=== PATIENT | female | born 1930 | race Caucasian/White ===

== ENCOUNTER 2017-06-04 12:09 | Emergency (ER) | payer MEDICARE, OTHER ==
--- NOTE | 2017-06-04 12:41 | EDM.PDOC ---
ED HPI GENERAL MEDICAL PROBLEM - General Chief Complaint: Headache Stated Complaint: PAIN IN HEAD...HAS HAD 2 TIA'S Time Seen by Provider: 06/04/17 12:30 Source of Information: Reports: Patient, RN, RN Notes Reviewed History Limitations: Reports: No Limitations - History of Present Illness INITIAL COMMENTS - FREE TEXT/NARRATIVE: Patient presents to the ED at [facility] complaining of left side head pain. Patient states she has a cyst on the top of the left side of her head that has been their for several several years. She states every couple years, the cyst gets painful and the pain radiates down the left side of her head. She states she is concerned today because she has had 2 TIA's in the past. The head pain today does not feel like her symptoms when she had TIA's. No other concerns or complaints. Onset: Gradual Location: Reports: Head Quality: Reports: Dull Severity: Mild Improves with: Reports: None Worsens with: Reports: None Associated Symptoms: Reports: No Other Symptoms - Related Data Allergies Allergy/AdvReac Type Severity Reaction Status Date / Time aspirin [From Aggrenox] Allergy Nausea and Verified 06/04/17 12:32 Vomiting codeine Allergy Nausea Verified 06/04/17 12:32 dipyridamole [From Aggrenox] Allergy Nausea and Verified 06/04/17 12:32 Vomiting etodolac [From Lodine] Allergy Nausea Verified 06/04/17 12:32 homatropine [From Hycodan] Allergy Nausea Verified 06/04/17 12:32 homatropine methylbromide Allergy Nausea Verified 06/04/17 12:32 [From Hycodan] hydrocodone bitartrate Allergy Nausea Verified 06/04/17 12:32 [From Hycodan] tramadol HCl [From Ultram] Allergy Nausea Verified 06/04/17 12:32 Home Meds: Home Meds Ascorbic Acid [Vitamin C] 1,000 mg PO 11/15/13 [History] Aspirin 81 mg PO 11/15/13 [History] Cyanocobalamin (Vitamin B12) [Vitamin B12] 1,000 mcg .XX 11/15/13 [History] Metoprolol Succinate [Toprol XL] 50 mg PO DAILY 11/15/13 [History] Potassium Chloride 10 meq PO BID 11/15/13 [History] Ranitidine [Zantac] 150 mg PO BID 11/15/13 [History] chlordiazePOXIDE [Librium] 10 mg PO BID PRN 11/15/13 [History] Potassium Chloride [Klor-Con 10] 10 meq PO TID #90 tab.er 11/16/13 [Rx] Past Medical History Cardiovascular History: Reports: Hypertension Gastrointestinal History: Reports: Diverticulosis Musculoskeletal History: Reports: Arthritis Neurological History: Reports: TIA Social & Family History - Tobacco Use Smoking Status *Q: Never Smoker Years of Tobacco use: 10 - Recreational Drug Use Recreational Drug Use: No ED ROS GENERAL - Review of Systems Review Of Systems: See Below Constitutional: Denies: Fever, Chills, Weakness HEENT: Reports: No Symptoms Respiratory: Denies: Shortness of Breath, Cough Cardiovascular: Denies: Chest Pain, Palpitations Skin: Reports: No Symptoms Neurological: Reports: Headache. Denies: Confusion, Dizziness, Numbness, Paresthesia, Syncope, Tingling, Trouble Speaking, Weakness - Physical Exam Exam: See Below Exam Limited By: No Limitations General Appearance: Alert, No Apparent Distress Eye Exam: Bilateral Eye: EOMI, Normal Inspection, PERRL Ears: Normal External Exam, Normal Canal, Normal TMs Neck: Supple Respiratory/Chest: No Respiratory Distress, Lungs Clear, Normal Breath Sounds Cardiovascular: Regular Rate, Rhythm Neuro Exam (Abbreviated): Alert, Oriented, Normal Cognition Skin Exam: Warm, Dry, Intact, Normal Color, No Rash Course - Vital Signs Last Recorded V/S: Last Vital Signs Temp 35.8 C 06/04/17 12:15 Pulse 59 L 06/04/17 13:10 Resp 14 06/04/17 13:10 BP 180/69 H 06/04/17 13:10 Pulse Ox 98 06/04/17 13:10 - Orders/Labs/Meds Orders: Active Orders 24 hr Category Date Time Status Head wo Cont [CT] Stat Exams 06/04/17 12:41 Taken - Radiology Interpretation Free Text/Narrative:: Head CT: No acute intracranial findings - See scanned document in EMR CT Results Date: 06/04/17 CT Results Time: 13:59 Departure - Departure Time of Disposition: 14:20 Disposition: Home, Self-Care 01 Condition: Good Clinical Impression: Inclusion cyst Head pain Qualifiers: Headache type: unspecified Headache chronicity pattern: unspecified pattern Intractability: not intractable Qualified Code(s): R51 - Headache - Discharge Information Referrals: Dona Araujo MD [Primary Care Provider] - Forms: ED Department Discharge Additional Instructions: 1. Stay well hydrated and rest 2. If the skin cyst becomes more bothersome, see you primary for possible removal in clinic 3. Call with any questions/concerns 4. CT scan of Head was normal - Problem List Review Problem List Initiated/Reviewed/Updated: Yes - My Orders Last 24 Hours: My Active Orders 06/04/17 12:41 Head wo Cont [CT] Stat - Assessment/Plan Last 24 Hours: My Active Orders 06/04/17 12:41 Head wo Cont [CT] Stat
== END 2017-06-04 14:37 | disposition home or self-care (01) ==
LOC: VM.ED 12:09
DX: R51 Headache (principal); L72.0 Epidermal cyst; I10 Essential (primary) hypertension; M19.90 Unspecified osteoarthritis, unspecified site; Z79.82 Long term (current) use of aspirin; Z88.5 Allergy status to narcotic agent; Z88.8 Allergy status to other drugs, medicaments and biological substances; Z79.899 Other long term (current) drug therapy
CPT/HCPCS: 70450; 99284; 99284-GF

== ENCOUNTER 2018-02-06 20:39 | Emergency (ER) | payer MEDICARE, OTHER ==
[2018-02-06] MEDS ORDERED: Sodium Chloride 0.9% 10 ML Syringe FLUSH PRN (21:11)
[2018-02-06 22:02] LABS: CHLORIDE,CL 104 mmol/L (98-107); SODIUM,NA 142 mmol/L (136-145)
--- NOTE | 2018-02-06 22:41 | EDM.PDOC ---
ED HPI GENERAL MEDICAL PROBLEM - General Chief Complaint: General Stated Complaint: worried about potassium Time Seen by Provider: 02/06/18 20:47 Source of Information: Reports: Patient History Limitations: Reports: No Limitations - History of Present Illness INITIAL COMMENTS - FREE TEXT/NARRATIVE: Pt. presents with a history of N/V/D for 1 days. She denies any fever or chills. She states that she is not experiencing any abdominal pain. No chest pain or shortness of breath. Pt. has a history of diverticulitis and states that she is prone to hypokalemia when she is experiencing vomiting and diarrhea. She denies any fever or chills. No weakness. She denies any dysuria. Onset: Today Onset Date: 02/06/18 Location: Reports: Abdomen Quality: Reports: Ache Middle Abdomen Pain Score (Numeric/FACES): 3 - Related Data Allergies Allergy/AdvReac Type Severity Reaction Status Date / Time aspirin [From Aggrenox] Allergy Nausea and Verified 02/06/18 20:50 Vomiting codeine Allergy Nausea Verified 02/06/18 20:50 dipyridamole [From Aggrenox] Allergy Nausea and Verified 02/06/18 20:50 Vomiting etodolac [From Lodine] Allergy Nausea Verified 02/06/18 20:50 homatropine [From Hycodan] Allergy Nausea Verified 02/06/18 20:50 homatropine methylbromide Allergy Nausea Verified 02/06/18 20:50 [From Hycodan] hydrocodone bitartrate Allergy Nausea Verified 02/06/18 20:50 [From Hycodan] tramadol HCl [From Ultram] Allergy Nausea Verified 02/06/18 20:50 Home Meds: Home Meds Ascorbic Acid [Vitamin C] 1,000 mg PO DAILY 11/15/13 [History] Aspirin 81 mg PO DAILY 11/15/13 [History] Cyanocobalamin (Vitamin B12) [Vitamin B12] 1,000 mcg PO DAILY 11/15/13 [History] Metoprolol Succinate [Toprol XL] 50 mg PO DAILY 11/15/13 [History] chlordiazePOXIDE [Librium] 10 mg PO BID PRN 11/15/13 [History] L.acidoph,Paracasei, B.lactis [Probiotic] 1 each PO DAILY 02/06/18 [History] Occuvite 1 tab PO DAILY 02/06/18 [History] Past Medical History Cardiovascular History: Reports: Hypertension Gastrointestinal History: Reports: Diverticulosis Musculoskeletal History: Reports: Arthritis Neurological History: Reports: TIA - Past Surgical History HEENT Surgical History: Reports: Cataract Surgery Social & Family History - Tobacco Use Smoking Status *Q: Former Smoker Years of Tobacco use: 10 Used Tobacco, but Quit: Yes Month Tobacco Last Used: 120 - Recreational Drug Use Recreational Drug Use: No ED ROS GENERAL - Review of Systems Review Of Systems: See Below Constitutional: Reports: No Symptoms HEENT: Reports: No Symptoms Respiratory: Reports: No Symptoms Cardiovascular: Reports: No Symptoms Endocrine: Reports: No Symptoms GI/Abdominal: Reports: Diarrhea, Nausea, Vomiting : Reports: No Symptoms Musculoskeletal: Reports: No Symptoms Skin: Reports: No Symptoms Neurological: Reports: No Symptoms Psychiatric: Reports: No Symptoms Hematologic/Lymphatic: Reports: No Symptoms Immunologic: Reports: No Symptoms ED EXAM, GENERAL - Physical Exam Exam: See Below Exam Limited By: No Limitations General Appearance: Alert, WD/WN, No Apparent Distress Throat/Mouth: Normal Inspection, Normal Lips, Normal Teeth, Normal Gums, Normal Oropharynx, Normal Voice, No Airway Compromise Head: Atraumatic, Normocephalic Neck: Normal Inspection, Supple, Non-Tender, Full Range of Motion Respiratory/Chest: No Respiratory Distress, Lungs Clear, Normal Breath Sounds, No Accessory Muscle Use, Chest Non-Tender Cardiovascular: Normal Peripheral Pulses, Regular Rate, Rhythm, No Edema, No Gallop, No JVD, No Murmur, No Rub Peripheral Pulses: 3+: Radial (L), Radial (R) GI/Abdominal: Normal Bowel Sounds, Soft, Non-Tender, No Organomegaly, No Distention, No Abnormal Bruit, No Mass (Female) Exam: Deferred Rectal (Female) Exam: Deferred Back Exam: Normal Inspection, Full Range of Motion Extremities: Normal Inspection, Normal Range of Motion, Non-Tender Neurological: Alert, Oriented, CN II-XII Intact, Normal Cognition, Normal Gait, Normal Reflexes, No Motor/Sensory Deficits Psychiatric: Normal Affect, Normal Mood Skin Exam: Warm, Dry, Intact, Normal Color, No Rash Lymphatic: No Adenopathy Course - Vital Signs Last Recorded V/S: Last Vital Signs Temp 35.9 C 02/06/18 20:47 Pulse 83 02/06/18 22:18 Resp 18 02/06/18 22:18 BP 136/78 02/06/18 22:18 Pulse Ox 96 02/06/18 22:18 - Orders/Labs/Meds Labs: Laboratory Tests 02/06/18 02/06/18 02/06/18 Range/Units 21:20 21:35 21:35 WBC 10.9 H (4.0-10.0) x10^3/uL RBC 4.66 (4.00-5.50) x10^6/uL Hgb 15.5 D (12.0-16.0) g/dL Hct 46.2 (33.0-47.0) % MCV 99.1 H (78.0-93.0) fL MCH 33.3 H (26.0-32.0) pg MCHC 33.5 (32.0-36.0) g/dL RDW Coeff of Jeffry 12.8 (10.0-15.0) % Plt Count 152 (130-400) x10^3/uL Neut % (Auto) 84.6 H (50.0-80.0) % Lymph % (Auto) 6.1 L (25.0-50.0) % [place] % (Auto) 7.8 (2.0-11.0) % Eos % (Auto) 1.4 (0.0-4.0) % Baso % (Auto) 0.1 L (0.2-1.2) % PT 11.0 (9.8-11.8) SEC INR 1.0 L (2.0-3.5) Sodium (136-145) mmol/L Potassium (3.5-5.1) mmol/L Chloride (98-107) mmol/L Carbon Dioxide (21-32) mmol/L BUN (7-18) mg/dL Creatinine (0.55-1.02) mg/dL Est Cr Clr Drug Dosing Estimated GFR (MDRD) Glucose (74-106) mg/dL Lactic Acid (0.4-2.0) mmol/L Calcium (8.5-10.1) mg/dL Corrected Calcium (8.5-10.1) mg/dL Total Bilirubin (0.2-1.0) mg/dL AST (15-37) U/L ALT (14-59) U/L Alkaline Phosphatase (46-116) U/L C-Reactive Protein (<=0.9) mg/dL Total Protein (6.4-8.2) g/dL Albumin (3.4-5.0) g/dL Globulin Albumin/Globulin Ratio Urine Color Yellow (YELLOW) Urine Appearance Slightly cloudy H (CLEAR) Urine pH 5.0 (5.0-8.0) Ur Specific [place] >=1.030 Urine Protein 30 H (NEGATIVE) mg/dL Urine Glucose (UA) Negative (NEGATIVE) mg/dL Urine Ketones 15 H (NEGATIVE) mg/dL Urine Occult Blood Negative (NEGATIVE) Urine Nitrite Negative (NEGATIVE) Urine Bilirubin Negative (NEGATIVE) Urine Urobilinogen 0.2 (0.2) EU/dL Ur Leukocyte Esterase Negative (NEGATIVE) Urine RBC 0-5 (NOT SEEN) /HPF Urine WBC 0-5 (NOT SEEN) /HPF Ur Squamous Epith Cells Few H (NEGATIVE) /HPF Calcium Oxalate Crystal Moderate H (NEGATIVE) /HPF Urine Bacteria Few H (NEGATIVE) /HPF Urine Mucus Few H (NEGATIVE) /LPF 02/06/18 02/06/18 Range/Units 21:35 21:35 WBC (4.0-10.0) x10^3/uL RBC (4.00-5.50) x10^6/uL Hgb (12.0-16.0) g/dL Hct (33.0-47.0) % MCV (78.0-93.0) fL MCH (26.0-32.0) pg MCHC (32.0-36.0) g/dL RDW Coeff of Jeffry (10.0-15.0) % Plt Count (130-400) x10^3/uL Neut % (Auto) (50.0-80.0) % Lymph % (Auto) (25.0-50.0) % [place] % (Auto) (2.0-11.0) % Eos % (Auto) (0.0-4.0) % Baso % (Auto) (0.2-1.2) % PT (9.8-11.8) SEC INR (2.0-3.5) Sodium 142 (136-145) mmol/L Potassium 3.7 (3.5-5.1) mmol/L Chloride 104 (98-107) mmol/L Carbon Dioxide 29 (21-32) mmol/L BUN 15 (7-18) mg/dL Creatinine 1.6 H (0.55-1.02) mg/dL Est Cr Clr Drug Dosing TNP Estimated GFR (MDRD) 31 Glucose 148 H (74-106) mg/dL Lactic Acid 1.1 (0.4-2.0) mmol/L Calcium 9.7 (8.5-10.1) mg/dL Corrected Calcium 9.78 (8.5-10.1) mg/dL Total Bilirubin 0.6 (0.2-1.0) mg/dL AST 28 (15-37) U/L ALT 23 (14-59) U/L Alkaline Phosphatase 79 (46-116) U/L C-Reactive Protein < 0.2 (<=0.9) mg/dL Total Protein 7.3 (6.4-8.2) g/dL Albumin 3.9 (3.4-5.0) g/dL Globulin 3.4 Albumin/Globulin Ratio 1.15 Urine Color (YELLOW) Urine Appearance (CLEAR) Urine pH (5.0-8.0) Ur Specific [place] Urine Protein (NEGATIVE) mg/dL Urine Glucose (UA) (NEGATIVE) mg/dL Urine Ketones (NEGATIVE) mg/dL Urine Occult Blood (NEGATIVE) Urine Nitrite (NEGATIVE) Urine Bilirubin (NEGATIVE) Urine Urobilinogen (0.2) EU/dL Ur Leukocyte Esterase (NEGATIVE) Urine RBC (NOT SEEN) /HPF Urine WBC (NOT SEEN) /HPF Ur Squamous Epith Cells (NEGATIVE) /HPF Calcium Oxalate Crystal (NEGATIVE) /HPF Urine Bacteria (NEGATIVE) /HPF Urine Mucus (NEGATIVE) /LPF Meds: Medications Discontinued Medications Generic Name Dose Route Start Last Admin Trade Name Freq PRN Reason Stop Dose Admin Sodium Chloride 10 ml 02/06/18 21:11 Saline Flush FLUSH ASDIRECTED PRN Keep Vein Open Departure - Departure Time of Disposition: 22:36 Disposition: Home, Self-Care 01 Condition: Good Clinical Impression: Gastroenteritis - Discharge Information Instructions: Viral Gastroenteritis, Adult Referrals: Gretel Cintron [employer] [Primary Care Provider] - Forms: ED Department Discharge Additional Instructions: Follow-up in clinic in 10-14 days, sooner if not gradually improving. Eat a bland diet. Drink plenty of fluids. Return if unable to hold down liquids.
== END 2018-02-06 22:34 | disposition home or self-care (01) ==
LOC: VM.ED 20:39
DX: K52.9 Noninfective gastroenteritis and colitis, unspecified (principal); I10 Essential (primary) hypertension; Z88.6 Allergy status to analgesic agent; Z87.891 Personal history of nicotine dependence; Z88.5 Allergy status to narcotic agent; Z88.8 Allergy status to other drugs, medicaments and biological substances; Z79.899 Other long term (current) drug therapy
CPT/HCPCS: 36415; 80053; 81001; 83605; 85025; 85610; 86140; 99283-GF; 99284

== ENCOUNTER 2018-02-07 18:29 | Emergency (ER) | payer MEDICARE, OTHER ==
[2018-02-07 19:21] LABS: CHLORIDE,CL 104 mmol/L (98-107); SODIUM,NA 142 mmol/L (136-145)
--- NOTE | 2018-02-07 19:31 | EDM.PDOC ---
<Chet Judd W - Last Filed: 02/07/18 19:31> ED HPI GENERAL MEDICAL PROBLEM - General Chief Complaint: Neuro Symptoms/Deficits Time Seen by Provider: 02/07/18 18:35 Source of Information: Reports: Patient History Limitations: Reports: No Limitations - History of Present Illness INITIAL COMMENTS - FREE TEXT/NARRATIVE: Pt. presents to ER with complaints of expressive aphasia that lasted approx. 8 minutes with sitting on her sofa at home. She states that she also had a R frontal headache as well during this time. Pt. states that she was alone at time of onset. She states that she was " talking to herself" and states that her language "was gibberish". She denies any recent head trauma. Denies any chest pain or shortness of breath. She states that, aside from the speech troubles and headache, she had no other neurological symptoms. She states that she has a history of previous TIAs, the last episode being a year ago. She states that at that time, her speech was garbled as well. Pt. states that all of her symptoms had resolved on arrival to the ER. - Related Data Allergies Allergy/AdvReac Type Severity Reaction Status Date / Time aspirin [From Aggrenox] AdvReac Nausea and Verified 02/07/18 18:43 Vomiting codeine AdvReac Nausea Verified 02/07/18 18:43 dipyridamole [From Aggrenox] AdvReac Nausea and Verified 02/07/18 18:43 Vomiting etodolac [From Lodine] AdvReac Nausea Verified 02/07/18 18:43 homatropine [From Hycodan] AdvReac Nausea Verified 02/07/18 18:43 homatropine methylbromide AdvReac Nausea Verified 02/07/18 18:43 [From Hycodan] hydrocodone bitartrate AdvReac Nausea Verified 02/07/18 18:43 [From Hycodan] tramadol HCl [From Ultram] AdvReac Nausea Verified 02/07/18 18:43 Home Meds: Home Meds Ascorbic Acid [Vitamin C] 1,000 mg PO DAILY 11/15/13 [History] Aspirin 81 mg PO DAILY 11/15/13 [History] Cyanocobalamin (Vitamin B12) [Vitamin B12] 1,000 mcg PO DAILY 11/15/13 [History] Metoprolol Succinate [Toprol XL] 50 mg PO DAILY 11/15/13 [History] chlordiazePOXIDE [Librium] 10 mg PO BID PRN 11/15/13 [History] L.acidoph,Paracasei, B.lactis [Probiotic] 1 each PO DAILY 02/06/18 [History] Occuvite 1 tab PO DAILY 02/06/18 [History] Past Medical History Cardiovascular History: Reports: Hypertension Gastrointestinal History: Reports: Diverticulosis Musculoskeletal History: Reports: Arthritis Neurological History: Reports: TIA - Past Surgical History HEENT Surgical History: Reports: Cataract Surgery Social & Family History - Tobacco Use Smoking Status *Q: Unknown Ever Smoked Years of Tobacco use: 10 Used Tobacco, but Quit: Yes Month Tobacco Last Used: 120 - Recreational Drug Use Recreational Drug Use: No ED ROS GENERAL - Review of Systems Review Of Systems: See Below Constitutional: Reports: No Symptoms HEENT: Reports: No Symptoms Respiratory: Reports: No Symptoms Cardiovascular: Reports: No Symptoms Endocrine: Reports: No Symptoms GI/Abdominal: Reports: Other (Seen in ER for gastroenteritis, including nausea, vomiting, and diarrhea last evening.) : Reports: No Symptoms Musculoskeletal: Reports: No Symptoms Skin: Reports: No Symptoms Neurological: Reports: Change in Speech (expressive aphasia today, lasting approx. 8 min. Symptoms resolved prior to arrival in the ER.) Psychiatric: Reports: No Symptoms Hematologic/Lymphatic: Reports: No Symptoms Immunologic: Reports: No Symptoms ED EXAM, GENERAL - Physical Exam Exam: See Below Exam Limited By: No Limitations General Appearance: Alert, WD/WN, No Apparent Distress Eye Exam: Bilateral Eye: EOMI, Normal Fundi, Normal Inspection, PERRL Nose: Normal Inspection, Normal Mucosa, No Blood Throat/Mouth: Normal Inspection, Normal Lips, Normal Teeth, Normal Gums, Normal Oropharynx, Normal Voice, No Airway Compromise Head: Atraumatic, Normocephalic Neck: Normal Inspection, Supple, Non-Tender, Full Range of Motion. No: Carotid Bruit Respiratory/Chest: No Respiratory Distress, Lungs Clear, Normal Breath Sounds, No Accessory Muscle Use, Chest Non-Tender Cardiovascular: Normal Peripheral Pulses, Regular Rate, Rhythm, No Edema, No Gallop, No JVD, No Murmur, No Rub Peripheral Pulses: 3+: Radial (L), Radial (R) GI/Abdominal: Normal Bowel Sounds, Soft, Non-Tender, No Organomegaly, No Distention, No Abnormal Bruit, No Mass (Female) Exam: Deferred Rectal (Female) Exam: Deferred Back Exam: Normal Inspection, Full Range of Motion, NT Extremities: Normal Inspection, Normal Range of Motion, Non-Tender, Normal Capillary Refill, No Pedal Edema Neurological: Alert, Oriented, CN II-XII Intact, Normal Cognition, Normal Gait, Normal Reflexes, No Motor/Sensory Deficits, Other (No pronator drift. 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 Facial muscles are symmetrical. Romberg is negative. NIH stroke scale is 0.). No: Abnormal Gait, Abnormal Reflexes, Sensory/Motor Deficit Course - Vital Signs Last Recorded V/S: Last Vital Signs Temp 36.2 C 02/07/18 18:30 Pulse 57 L 02/07/18 19:30 Resp 16 02/07/18 19:30 BP 169/75 H 02/07/18 19:30 Pulse Ox 96 02/07/18 18:30 - Orders/Labs/Meds Orders: Active Orders 24 hr Category Date Time Status EKG Documentation Completion [RC] STAT Care 02/07/18 18:41 Active Head wo Cont [CT] Stat Exams 02/07/18 18:41 Taken Labs: Laboratory Tests 02/07/18 02/07/18 02/07/18 Range/Units 18:52 18:52 18:52 WBC 5.7 (4.0-10.0) x10^3/uL RBC 4.27 (4.00-5.50) x10^6/uL Hgb 14.0 D (12.0-16.0) g/dL Hct 42.5 (33.0-47.0) % MCV 99.5 H (78.0-93.0) fL MCH 32.8 H (26.0-32.0) pg MCHC 32.9 (32.0-36.0) g/dL RDW Coeff of Jeffry 13.0 (10.0-15.0) % Plt Count 149 (130-400) x10^3/uL Neut % (Auto) 62.0 (50.0-80.0) % Lymph % (Auto) 24.6 L (25.0-50.0) % [place] % (Auto) 9.7 (2.0-11.0) % Eos % (Auto) 3.5 (0.0-4.0) % Baso % (Auto) 0.2 (0.2-1.2) % PT 11.5 (9.8-11.8) SEC INR 1.1 L (2.0-3.5) Sodium 142 (136-145) mmol/L Potassium 3.7 (3.5-5.1) mmol/L Chloride 104 (98-107) mmol/L Carbon Dioxide 30 (21-32) mmol/L BUN 17 (7-18) mg/dL Creatinine 1.6 H (0.55-1.02) mg/dL Est Cr Clr Drug Dosing 18.46 mL/min Estimated GFR (MDRD) 31 Glucose 136 H (74-106) mg/dL Calcium 9.3 (8.5-10.1) mg/dL Corrected Calcium 9.70 (8.5-10.1) mg/dL Total Bilirubin 0.8 (0.2-1.0) mg/dL AST 22 (15-37) U/L ALT 21 (14-59) U/L Alkaline Phosphatase 78 (46-116) U/L Troponin I < 0.017 (<=0.056) ng/mL Total Protein 6.7 (6.4-8.2) g/dL Albumin 3.5 (3.4-5.0) g/dL Globulin 3.2 Albumin/Globulin Ratio 1.09 Departure - Departure Disposition: DC/[facility]fer to [facility] 02 Clinical Impression: TIA, Transient ischemic attack - Discharge Information Referrals: Gretel Cintron, RN REVIEW [Primary Care Provider] - Forms: ED Department Discharge, Interfacility Transfer EMTALA <Uriah Alexander - Last Filed: 02/07/18 22:01> EKG INTERPRETATION EKG Date: 02/07/18 Time: 19:07 Rhythm: Other (sinus bradycardia) Rate (Beats/Min): 53 [place]: Normal P-Wave: Present QRS: Normal ST-T: Normal QT: Normal Comparison: Change From Previous EKG EKG Interpretation Comments: 1. sinus bradycardia 2. minimal voltage criteria for LVH, consider normal variant 3. Septal myocardial infarction of indeterminate age 4. Abnormal EKG Course - Radiology Interpretation Free Text/Narrative:: CT result negative for hemorrhage or ischemia. Departure - Departure Time of Disposition: 22:00 ED Communication - Discussed Case With (1) Discussed Case With (1): Other (Dr. Gibbons from neurology was consulted. Recommendation to present to the ER for further evaluation.)
== END 2018-02-07 22:09 | disposition short-term general hospital (02) ==
LOC: VM.ED 18:29
DX: G45.9 Transient cerebral ischemic attack, unspecified (principal); I10 Essential (primary) hypertension; Z88.6 Allergy status to analgesic agent; Z88.5 Allergy status to narcotic agent; Z88.8 Allergy status to other drugs, medicaments and biological substances; Z79.899 Other long term (current) drug therapy; Z79.82 Long term (current) use of aspirin; Z87.891 Personal history of nicotine dependence
CPT/HCPCS: 36415; 70450; 80053; 84484; 85025; 85610; 93005; 99285

== ENCOUNTER 2018-02-17 09:14 | Emergency (ER) | payer MEDICARE, OTHER ==
--- NOTE | 2018-02-17 09:53 | EDM.PDOC ---
ED HPI GENERAL MEDICAL PROBLEM - General Chief Complaint: General Stated Complaint: ER Time Seen by Provider: 02/17/18 09:22 Source of Information: Reports: Patient, Old Records, RN, RN Notes Reviewed History Limitations: Reports: No Limitations - History of Present Illness INITIAL COMMENTS - FREE TEXT/NARRATIVE: Patient presents to the emergency room at [facility] per the request of here primary care provider. Patient had a Holter monitor placed on 02/10/2018 at [facility]. Patient apparently had some events over the weekend and was requested to have a work up at the nearest hospital before going to [facility] in [place]. Patient denies any chest pain, shortness of breath, numbness or tingling to arms or legs. She states she did not know anything was going on. - Related Data Allergies Allergy/AdvReac Type Severity Reaction Status Date / Time aspirin [From Aggrenox] AdvReac Nausea and Verified 02/17/18 09:41 Vomiting codeine AdvReac Nausea Verified 02/17/18 09:41 dipyridamole [From Aggrenox] AdvReac Nausea and Verified 02/17/18 09:41 Vomiting etodolac [From Lodine] AdvReac Nausea Verified 02/17/18 09:41 homatropine [From Hycodan] AdvReac Nausea Verified 02/17/18 09:41 homatropine methylbromide AdvReac Nausea Verified 02/17/18 09:41 [From Hycodan] hydrocodone bitartrate AdvReac Nausea Verified 02/17/18 09:41 [From Hycodan] tramadol HCl [From Ultram] AdvReac Nausea Verified 02/17/18 09:41 Home Meds: Home Meds Ascorbic Acid [Vitamin C] 1,000 mg PO DAILY 11/15/13 [History] Aspirin 81 mg PO DAILY 11/15/13 [History] Cyanocobalamin (Vitamin B12) [Vitamin B12] 1,000 mcg PO DAILY 11/15/13 [History] Metoprolol Succinate [Toprol XL] 50 mg PO DAILY 11/15/13 [History] chlordiazePOXIDE [Librium] 10 mg PO BID PRN 11/15/13 [History] L.acidoph,Paracasei, B.lactis [Probiotic] 1 each PO DAILY 02/06/18 [History] Occuvite 1 tab PO DAILY 02/06/18 [History] Past Medical History Cardiovascular History: Reports: Hypertension Gastrointestinal History: Reports: Diverticulosis Musculoskeletal History: Reports: Arthritis Neurological History: Reports: TIA - Past Surgical History HEENT Surgical History: Reports: Cataract Surgery Social & Family History - Tobacco Use Smoking Status *Q: Unknown Ever Smoked Years of Tobacco use: 10 Used Tobacco, but Quit: Yes Month/Year Tobacco Last Used: 120 - Recreational Drug Use Recreational Drug Use: No ED ROS GENERAL - Review of Systems Review Of Systems: See Below Constitutional: Reports: No Symptoms. Denies: Fever, Chills, Weakness, Fatigue Respiratory: Reports: No Symptoms. Denies: Shortness of Breath Cardiovascular: Reports: No Symptoms. Denies: Chest Pain, Dyspnea on Exertion, Edema, Lightheadedness, Palpitations GI/Abdominal: Denies: Abdominal Pain Skin: Reports: No Symptoms Neurological: Reports: No Symptoms. Denies: Confusion, Dizziness, Numbness, Tingling, Weakness ED EXAM, GENERAL - Physical Exam Exam: See Below Exam Limited By: No Limitations General Appearance: Alert, No Apparent Distress Respiratory/Chest: No Respiratory Distress, Lungs Clear, Normal Breath Sounds Cardiovascular: Normal Peripheral Pulses, Regular Rate, Rhythm, No Edema, No Gallop, No Murmur, No Rub Peripheral Pulses: 2+: Posterior Tibial (L), Posterior Tibial (R), Dorsalis Pedis (L), Dorsalis Pedis (R) GI/Abdominal: Normal Bowel Sounds, Soft, Non-Tender Neurological: Alert, Oriented, Normal Cognition, Normal Gait, No Motor/Sensory Deficits Skin Exam: Warm, Dry, Intact, Normal Color, No Rash EKG INTERPRETATION EKG Date: 02/17/18 Time: 09:35 Rhythm: Other (Sinus Bradycardia) Rate (Beats/Min): 58 [place]: LAD-Left Norwood Deviation P-Wave: Present QRS: Normal ST-T: Normal QT: Normal MA/PQ Interval: 0.19 EKG Interpretation Comments: Sinus Bradycardia, borderline left axis deviation. Course - Vital Signs Last Recorded V/S: Last Vital Signs Temp 36.3 C 02/17/18 09:20 Pulse 58 L 02/17/18 09:20 Resp 16 02/17/18 09:20 BP 141/90 H 02/17/18 09:20 Pulse Ox 94 L 02/17/18 09:20 - Orders/Labs/Meds Orders: Active Orders 24 hr Category Date Time Status EKG Documentation Completion [RC] STAT Care 02/17/18 10:07 Active Lactated Ringers @ 50 MLS/HR(1000ml) Med 02/17/18 11:15 Ordered Lactated Ringers [Ringers, Lactated] 1,000 ml IV ASDIRECTED Magnesium Sulfate/Water [Magnesium Sulfate 2 GM in Med 02/17/18 11:06 Ordered Water 50 ML] 2 gm Premix Bag 1 bag IV ONETIME Sodium Chloride 0.9% [Saline Flush] Med 02/17/18 10:07 Active 10 ml FLUSH ASDIRECTED PRN Peripheral IV Insertion Adult [OM.PC] Routine Oth 02/17/18 10:07 Ordered Medication Orders Lactated Ringer's (Ringers, Lactated) 1,000 mls @ 50 mls/hr IV ASDIRECTED PASTORA Magnesium Sulfate 2 gm/ Premix 50 mls @ 25 mls/hr IV ONETIME ONE Stop: 02/17/18 13:05 Sodium Chloride (Saline Flush) 10 ml FLUSH ASDIRECTED PRN PRN Reason: Keep Vein Open Labs: Laboratory Tests 02/17/18 02/17/18 Range/Units 10:22 10:22 WBC 4.4 (4.0-10.0) x10^3/uL RBC 4.23 (4.00-5.50) x10^6/uL Hgb 14.2 (12.0-16.0) g/dL Hct 41.3 (33.0-47.0) % MCV 97.6 H (78.0-93.0) fL MCH 33.6 H (26.0-32.0) pg MCHC 34.4 (32.0-36.0) g/dL RDW Coeff of Jeffry 12.8 (10.0-15.0) % Plt Count 152 (130-400) x10^3/uL Neut % (Auto) 70.8 (50.0-80.0) % Lymph % (Auto) 16.3 L (25.0-50.0) % [place] % (Auto) 9.5 (2.0-11.0) % Eos % (Auto) 2.9 (0.0-4.0) % Baso % (Auto) 0.5 (0.2-1.2) % Sodium 144 (136-145) mmol/L Potassium 4.0 (3.5-5.1) mmol/L Chloride 106 (98-107) mmol/L Carbon Dioxide 28 (21-32) mmol/L BUN 12 (7-18) mg/dL Creatinine 1.5 H (0.55-1.02) mg/dL Est Cr Clr Drug Dosing TNP Estimated GFR (MDRD) 33 Glucose 127 H (74-106) mg/dL Calcium 9.0 (8.5-10.1) mg/dL Magnesium 1.5 L (1.8-2.4) mg/dL Creatine Kinase 33 (26-192) U/L Troponin I < 0.017 (<=0.056) ng/mL Meds: Medications Generic Name Dose Route Start Last Admin Trade Name Freq PRN Reason Stop Dose Admin Lactated Ringer's 1,000 mls @ 50 mls/hr 02/17/18 11:15 Ringers, Lactated IV ASDIRECTED PASTORA Magnesium Sulfate 2 gm/ Premix 50 mls @ 25 mls/hr 02/17/18 11:06 IV 02/17/18 13:05 ONETIME ONE Sodium Chloride 10 ml 02/17/18 10:07 Saline Flush FLUSH ASDIRECTED PRN Keep Vein Open Departure - Departure Time of Disposition: 11:26 Disposition: DC/Tfer to Acute Hospital 02 Condition: Good Clinical Impression: Hypomagnesemia Cardiac arrhythmia Qualifiers: Arrhythmia type: unspecified cardiac arrhythmia Qualified Code(s): I49.9 - Cardiac arrhythmia, unspecified - Discharge Information Forms: Interfacility Transfer [facility] ED Communication - ED Communication Date/Time Date: 02/17/18 Time Called: 11:23 - Discussed Case With (1) Discussed Case With (1): Admitting Provider (Dr. Florentino, Hospitalist. Report given. Patient accepted in transfer. Patient will be sent ALS ground to [facility].) - Conversation Summary Admitting Provider Agreed to Patient's Admission: Yes Patient Aware of Amendments fo Care Plan: Yes - Problem List Review Problem List Initiated/Reviewed/Updated: Yes - My Orders Last 24 Hours: My Active Orders 02/17/18 10:07 EKG Documentation Completion [RC] STAT Sodium Chloride 0.9% [Saline Flush] 10 ml FLUSH ASDIRECTED PRN Peripheral IV Insertion Adult [OM.PC] Routine 02/17/18 11:06 Magnesium Sulfate/Water [Magnesium Sulfate 2 GM in Water 50 ML] 2 gm Premix Bag 1 bag IV ONETIME 02/17/18 11:15 Lactated Ringers @ 50 MLS/HR(1000ml) Lactated Ringers [Ringers, Lactated] 1, 000 ml IV ASDIRECTED - Assessment/Plan Last 24 Hours: My Active Orders 02/17/18 10:07 EKG Documentation Completion [RC] STAT Sodium Chloride 0.9% [Saline Flush] 10 ml FLUSH ASDIRECTED PRN Peripheral IV Insertion Adult [OM.PC] Routine 02/17/18 11:06 Magnesium Sulfate/Water [Magnesium Sulfate 2 GM in Water 50 ML] 2 gm Premix Bag 1 bag IV ONETIME 02/17/18 11:15 Lactated Ringers @ 50 MLS/HR(1000ml) Lactated Ringers [Ringers, Lactated] 1, 000 ml IV ASDIRECTED Assessment:: Cardiac Arrrhymia Hypomagnesia Plan: Case discussed with Dr. Florentino, Hospitalist [facility]. Patient accepted in transfer. Patient will be sent via ALS ground for further workup and eval with Cardiology to see why her event monitor had critical events this past weekend.
[2018-02-17] MEDS ORDERED: Sodium Chloride 0.9% 10 ML Syringe FLUSH PRN (10:07)
[2018-02-17 10:54] LABS: CHLORIDE,CL 106 mmol/L (98-107); SODIUM,NA 144 mmol/L (136-145)
[2018-02-17] MEDS ORDERED: Magnesium Sulfate/Water 2 GM in Premix Bag 1 BAG IV ONE (11:06)
[2018-02-17] MEDS ORDERED: Lactated Ringers 1,000 ML IV SCH (11:15)
== END 2018-02-17 12:55 | disposition short-term general hospital (02) ==
LOC: VM.ED 09:14
DX: E83.42 Hypomagnesemia (principal); I49.9 Cardiac arrhythmia, unspecified; I10 Essential (primary) hypertension; Z88.8 Allergy status to other drugs, medicaments and biological substances; Z88.5 Allergy status to narcotic agent; Z79.899 Other long term (current) drug therapy; Z79.82 Long term (current) use of aspirin; Z87.891 Personal history of nicotine dependence
CPT/HCPCS: 36415; 80048; 82550; 83735; 84484; 85025; 93005; 93010; 96365; 99284-GF-25; 99285; J3475; J7120

== ENCOUNTER 2018-05-04 10:37 | Emergency (ER) | payer MEDICARE, OTHER ==
--- NOTE | 2018-05-04 11:33 | EDM.PDOC ---
ED HPI GENERAL MEDICAL PROBLEM - General Chief Complaint: ENT Problem Stated Complaint: LEFT EYE PROBLEM Time Seen by Provider: 05/04/18 11:10 Source of Information: Reports: Patient - History of Present Illness INITIAL COMMENTS - FREE TEXT/NARRATIVE: Patient comes into the emergency department complaining of left eye redness. Patient presents after a one-hour history of noting that her left eye was full blood or red. Patient is on Coumadin daily takes 2.5, 3 days a week and Half tablet the Other Days of the Week. She States She Just Started This 2 Months Ago for Pacemaker Placement. Patient Does Not Have Any Blurred Vision, Dizziness , Lightheadedness, Headache, SOB, or chest pain. She is just concerned with the look of the eye. Onset: Today Improves with: Reports: None Worsens with: Reports: None Associated Symptoms: Reports: No Other Symptoms - Related Data Allergies Allergy/AdvReac Type Severity Reaction Status Date / Time aspirin [From Aggrenox] AdvReac Nausea and Verified 05/04/18 11:03 Vomiting codeine AdvReac Nausea Verified 05/04/18 11:03 dipyridamole [From Aggrenox] AdvReac Nausea and Verified 05/04/18 11:03 Vomiting etodolac [From Lodine] AdvReac Nausea Verified 05/04/18 11:03 homatropine [From Hycodan] AdvReac Nausea Verified 05/04/18 11:03 homatropine methylbromide AdvReac Nausea Verified 05/04/18 11:03 [From Hycodan] hydrocodone bitartrate AdvReac Nausea Verified 05/04/18 11:03 [From Hycodan] tramadol HCl [From Ultram] AdvReac Nausea Verified 05/04/18 11:03 Home Meds: Home Meds Ascorbic Acid [Vitamin C] 1,000 mg PO DAILY 11/15/13 [History] Aspirin 81 mg PO DAILY 11/15/13 [History] Cyanocobalamin (Vitamin B12) [Vitamin B12] 1,000 mcg PO DAILY 11/15/13 [History] Metoprolol Succinate [Toprol XL] 50 mg PO DAILY 11/15/13 [History] L.acidoph,Paracasei, B.lactis [Probiotic] 1 each PO DAILY 02/06/18 [History] Occuvite 1 tab PO DAILY 02/06/18 [History] Warfarin [Coumadin] 2.5 mg PO SUTUWETHSA@1800 05/04/18 [History] Warfarin [Coumadin] 5 mg PO MOFR@1800 05/04/18 [History] chlordiazePOXIDE [Librium] 5 mg PO TID PRN 05/04/18 [History] Past Medical History Cardiovascular History: Reports: Hypertension, Pacemaker Gastrointestinal History: Reports: Diverticulosis Musculoskeletal History: Reports: Arthritis Neurological History: Reports: TIA Psychiatric History: Reports: Anxiety - Past Surgical History HEENT Surgical History: Reports: Cataract Surgery Cardiovascular Surgical History: Reports: Pacer, Other (See Below) Other Cardiovascular Surgeries/Procedures: Pacemaker placed 02/18/18 Social & Family History - Tobacco Use Smoking Status *Q: Former Smoker Used Tobacco, but Quit: Yes Month/Year Tobacco Last Used: 1974 - Recreational Drug Use Recreational Drug Use: No ED ROS GENERAL - Review of Systems Review Of Systems: ROS reveals no pertinent complaints other than HPI. Constitutional: Reports: No Symptoms Respiratory: Reports: No Symptoms Cardiovascular: Reports: No Symptoms Endocrine: Reports: No Symptoms GI/Abdominal: Reports: No Symptoms ED EXAM GENERAL W FULL EYE - Physical Exam Exam: See Below Exam Limited By: No Limitations General Appearance: Alert, WD/WN, No Apparent Distress Conjunctiva & Sclera: Right: Normal Appearance, Left: Subconjuctival Hemorrhage Cornea Exam: Bilateral: Normal Appearance Extraocular Movements: Bilateral: Intact Pupillary Size: Bilateral: 3 mm Pupillary Reaction: Bilateral: Brisk Nose: Normal Inspection, Normal Mucosa Throat/Mouth: Normal Inspection, Normal Lips Head: Atraumatic, Normocephalic Neck: Normal Inspection, Supple, Non-Tender, Full Range of Motion Respiratory/Chest: No Respiratory Distress, No Accessory Muscle Use Cardiovascular: Normal Peripheral Pulses, Regular Rate, Rhythm Back Exam: Normal Inspection, Full Range of Motion Extremities: Normal Inspection, Normal Range of Motion Neurological: Alert, Oriented Psychiatric: Normal Affect, Normal Mood Skin Exam: Warm, Dry, Intact, Normal Color, No Rash Course - Vital Signs Last Recorded V/S: Last Vital Signs Temp 36.7 C 05/04/18 10:58 Pulse 60 05/04/18 10:58 Resp 16 05/04/18 10:58 BP 183/81 H 05/04/18 10:58 Pulse Ox 99 05/04/18 10:58 - Orders/Labs/Meds Meds: Medications Discontinued Medications Generic Name Dose Route Start Last Admin Trade Name Perla PRN Reason Stop Dose Admin Hydrocodone Bitart/Acetaminophen 1 tab 05/04/18 11:48 05/04/18 12:39 [place] 325-5 Mg PO 05/04/18 11:49 Not Given ONETIME ONE Departure - Departure Time of Disposition: 11:30 Disposition: Home, Self-Care 01 Condition: Good Clinical Impression: Bleeding of eye Hyphema Qualifiers: Laterality: left Qualified Code(s): H21.02 - Hyphema, left eye - Discharge Information Instructions: Subconjunctival Hemorrhage Referrals: Gretel Cintron NP [Primary Care Provider] - Forms: ED Department Discharge Additional Instructions: 1. Rest 2. Follow up with Eye doctor tomorrow for further treatment recommendations 3. Return to the ER if symptoms worsen - Problem List Review Problem List Initiated/Reviewed/Updated: Yes - Assessment/Plan Assessment:: 1. Hyphema Plan: 1. Rest 2. Patient is encouraged to follow-up with her eye doctor tomorrow when the clinics open. Close follow up and monitor is vital. 3. She is advised to strain her eyes which is possible 4. Any discomfort that does arise she can place ice on the area 5. She is also given information if it progresses or she starts having any vision disturbances she is to report to the emergency department immediately
[2018-05-04] MEDS ORDERED: Acetaminophen/HYDROcodone 325-5 MG Tab PO ONE (11:48)
== END 2018-05-04 11:32 | disposition home or self-care (01) ==
LOC: VM.ED 10:37
DX: H21.02 Hyphema, left eye (principal); I10 Essential (primary) hypertension; Z88.6 Allergy status to analgesic agent; Z88.5 Allergy status to narcotic agent; Z88.8 Allergy status to other drugs, medicaments and biological substances; Z79.82 Long term (current) use of aspirin; Z79.899 Other long term (current) drug therapy; Z87.891 Personal history of nicotine dependence
CPT/HCPCS: 99282; 99282-GF

== ENCOUNTER 2019-11-06 18:58 | Emergency (ER) | payer MEDICARE, OTHER ==
--- NOTE | 2019-11-06 19:17 | EDM.PDOC ---
ED HPI GENERAL MEDICAL PROBLEM - General Chief Complaint: Neuro Symptoms/Deficits Stated Complaint: garbled speech Time Seen by Provider: 11/06/19 19:17 - History of Present Illness INITIAL COMMENTS - FREE TEXT/NARRATIVE: Pt presents earlier had 10 minute episode of garbled speech at this time has no deficets. Speach is clear. Pt with hx of stroke in the past has pacemaker. - Related Data Allergies Allergy/AdvReac Type Severity Reaction Status Date / Time aspirin [From Aggrenox] AdvReac Nausea and Verified 11/06/19 19:02 Vomiting codeine AdvReac Nausea Verified 11/06/19 19:02 dipyridamole [From Aggrenox] AdvReac Nausea and Verified 11/06/19 19:02 Vomiting etodolac [From Lodine] AdvReac Nausea Verified 11/06/19 19:02 homatropine [From Hycodan] AdvReac Nausea Verified 11/06/19 19:02 homatropine methylbromide AdvReac Nausea Verified 11/06/19 19:02 [From Hycodan] hydrocodone bitartrate AdvReac Nausea Verified 11/06/19 19:02 [From Hycodan] tramadol HCl [From Ultram] AdvReac Nausea Verified 11/06/19 19:02 Home Meds: Home Meds Ascorbic Acid [Vitamin C] 1,000 mg PO DAILY 11/15/13 [History] Cyanocobalamin (Vitamin B12) [Vitamin B12] 1,000 mcg PO DAILY 11/15/13 [History] Metoprolol Succinate [Toprol XL] 100 mg PO DAILY 11/15/13 [History] Occuvite 1 tab PO DAILY 02/06/18 [History] Warfarin [Coumadin] 2.5 mg PO ASDIRECTED 05/04/18 [History] chlordiazePOXIDE [Librium] 5 mg PO TID PRN 05/04/18 [History] Past Medical History Cardiovascular History: Reports: Hypertension, Pacemaker Gastrointestinal History: Reports: Diverticulosis Musculoskeletal History: Reports: Arthritis Neurological History: Reports: TIA Psychiatric History: Reports: Anxiety - Past Surgical History HEENT Surgical History: Reports: Cataract Surgery Cardiovascular Surgical History: Reports: Pacer, Other (See Below) Other Cardiovascular Surgeries/Procedures: Pacemaker placed 02/18/18 Social & Family History - Tobacco Use Smoking Status *Q: Former Smoker Used Tobacco, but Quit: Yes Month/Year Tobacco Last Used: 1987 ED ROS GENERAL - Review of Systems Review Of Systems: See Below Constitutional: Reports: No Symptoms HEENT: Reports: No Symptoms Respiratory: Reports: No Symptoms Cardiovascular: Reports: No Symptoms Endocrine: Reports: No Symptoms GI/Abdominal: Reports: No Symptoms : Reports: No Symptoms Musculoskeletal: Reports: No Symptoms Skin: Reports: No Symptoms Neurological: Reports: No Symptoms Psychiatric: Reports: No Symptoms Hematologic/Lymphatic: Reports: No Symptoms Immunologic: Reports: No Symptoms ED EXAM, GENERAL - Physical Exam Exam: See Below Free Text/Narrative:: Pt with garbled speech earlier about 10 minutes. At this time pt as baseline, gregg intact, no other complaints. Head Ct negative Exam Limited By: No Limitations General Appearance: Alert, WD/WN, No Apparent Distress Ears: Normal External Exam, Normal Canal, Hearing Grossly Normal, Normal TMs Ear Exam: Bilateral Ear: Auricle Normal, Canal Normal, TM normal Nose: Normal Inspection, Normal Mucosa, No Blood Throat/Mouth: Normal Inspection, Normal Lips, Normal Teeth, Normal Gums, Normal Oropharynx, Normal Voice, No Airway Compromise Head: Atraumatic, Normocephalic Neck: Normal Inspection, Supple, Non-Tender, Full Range of Motion Respiratory/Chest: No Respiratory Distress, Lungs Clear, Normal Breath Sounds, No Accessory Muscle Use, Chest Non-Tender Cardiovascular: Normal Peripheral Pulses GI/Abdominal: Normal Bowel Sounds, Soft, Non-Tender, No Organomegaly, No Distention, No Abnormal Bruit, No Mass Extremities: Normal Inspection, Normal Range of Motion, Non-Tender, Normal Capillary Refill, No Pedal Edema Neurological: Alert, Oriented, CN II-XII Intact, Normal Cognition, Normal Gait, Normal Reflexes, No Motor/Sensory Deficits Psychiatric: Normal Affect, Normal Mood Skin Exam: Warm, Dry, Intact, Normal Color, No Rash Course - Vital Signs Last Recorded V/S: Last Vital Signs Temp 37.3 C 11/06/19 18:59 Pulse 82 11/06/19 18:59 Resp 18 11/06/19 18:59 BP 169/76 H 11/06/19 20:33 Pulse Ox 98 11/06/19 18:59 - Orders/Labs/Meds Orders: Active Orders 24 hr Category Date Time Status EKG 12 Lead [EKG Documentation Completion] [RC] STAT Care 11/06/19 19:15 Active CULTURE URINE [RM] Stat Lab 11/06/19 19:44 Received Labs: Laboratory Tests 11/06/19 11/06/19 11/06/19 Range/Units 19:30 19:30 19:30 WBC 4.8 (4.0-10.0) x10^3/uL RBC 4.26 (4.00-5.50) x10^6/uL Hgb 13.7 (12.0-16.0) g/dL Hct 40.8 (33.0-47.0) % MCV 95.8 H (78.0-93.0) fL MCH 32.2 H (26.0-32.0) pg MCHC 33.6 (32.0-36.0) g/dL RDW Coeff of Jeffry 12.5 (10.0-15.0) % Plt Count 138 (130-400) x10^3/uL Neut % (Auto) 52.1 (50.0-80.0) % Lymph % (Auto) 31.5 (25.0-50.0) % Gregg % (Auto) 12.7 H (2.0-11.0) % Eos % (Auto) 3.3 (0.0-4.0) % Baso % (Auto) 0.4 (0.2-1.2) % PT 20.7 H (10.0-12.8) SEC INR 1.8 L (2.0-3.5) Sodium 142 (136-145) mmol/L Potassium 3.4 L (3.5-5.1) mmol/L Chloride 103 (98-107) mmol/L Carbon Dioxide 27 (21-32) mmol/L Anion Gap 15.4 (10-20) mmol/L BUN 12 (7-18) mg/dL Creatinine 1.4 H (0.55-1.02) mg/dL Est Cr Clr Drug Dosing TNP Estimated GFR (MDRD) 36 Glucose 164 H (74-106) mg/dL Calcium 9.1 (8.5-10.1) mg/dL Urine Color (YELLOW) Urine Appearance (CLEAR) Urine pH (5.0-8.0) Ur Specific Cando Urine Protein (NEGATIVE) mg/dL Urine Glucose (UA) (NEGATIVE) mg/dL Urine Ketones (NEGATIVE) mg/dL Urine Occult Blood (NEGATIVE) Urine Nitrite (NEGATIVE) Urine Bilirubin (NEGATIVE) Urine Urobilinogen (0.2) EU/dL Ur Leukocyte Esterase (NEGATIVE) Urine RBC (NOT SEEN) /HPF Urine WBC (NOT SEEN) /HPF Ur Squamous Epith Cells (NEGATIVE) /HPF Urine Bacteria (NEGATIVE) /HPF Urine Mucus (NEGATIVE) /LPF 11/06/19 Range/Units 19:44 WBC (4.0-10.0) x10^3/uL RBC (4.00-5.50) x10^6/uL Hgb (12.0-16.0) g/dL Hct (33.0-47.0) % MCV (78.0-93.0) fL MCH (26.0-32.0) pg MCHC (32.0-36.0) g/dL RDW Coeff of Jeffry (10.0-15.0) % Plt Count (130-400) x10^3/uL Neut % (Auto) (50.0-80.0) % Lymph % (Auto) (25.0-50.0) % Gregg % (Auto) (2.0-11.0) % Eos % (Auto) (0.0-4.0) % Baso % (Auto) (0.2-1.2) % PT (10.0-12.8) SEC INR (2.0-3.5) Sodium (136-145) mmol/L Potassium (3.5-5.1) mmol/L Chloride (98-107) mmol/L Carbon Dioxide (21-32) mmol/L Anion Gap (10-20) mmol/L BUN (7-18) mg/dL Creatinine (0.55-1.02) mg/dL Est Cr Clr Drug Dosing Estimated GFR (MDRD) Glucose (74-106) mg/dL Calcium (8.5-10.1) mg/dL Urine Color Yellow (YELLOW) Urine Appearance Slightly cloudy H (CLEAR) Urine pH 5.5 (5.0-8.0) Ur Specific [place] 1.010 Urine Protein Negative (NEGATIVE) mg/dL Urine Glucose (UA) Negative (NEGATIVE) mg/dL Urine Ketones Negative (NEGATIVE) mg/dL Urine Occult Blood Negative (NEGATIVE) Urine Nitrite Negative (NEGATIVE) Urine Bilirubin Negative (NEGATIVE) Urine Urobilinogen 0.2 (0.2) EU/dL Ur Leukocyte Esterase Trace H (NEGATIVE) Urine RBC 0-5 (NOT SEEN) /HPF Urine WBC 5-10 H (NOT SEEN) /HPF Ur Squamous Epith Cells Few H (NEGATIVE) /HPF Urine Bacteria Rare (NEGATIVE) /HPF Urine Mucus Not seen (NEGATIVE) /LPF Departure - Departure Time of Disposition: 20:39 Disposition: Home, Self-Care 01 Condition: Good Clinical Impression: TIA (transient ischemic attack) - Discharge Information Instructions: Transient Ischemic Attack, [id number] Referrals: Gretel Cintron [employer] [Primary Care Provider] - Forms: ED Department Discharge Care Plan Goals: Follow up with pcp for continued care - My Orders Last 24 Hours: My Active Orders 11/06/19 19:15 EKG 12 Lead [EKG Documentation Completion] [RC] STAT 11/06/19 19:44 CULTURE URINE [RM] Stat - Assessment/Plan Last 24 Hours: My Active Orders 11/06/19 19:15 EKG 12 Lead [EKG Documentation Completion] [RC] STAT 11/06/19 19:44 CULTURE URINE [RM] Stat
[2019-11-06 19:48] LABS: ANION GAP 15.4 mmol/L (10-20); CHLORIDE,CL 103 mmol/L (98-107); SODIUM,NA 142 mmol/L (136-145)
--- NOTE | 2019-11-06 20:28 | CT ---
[id number] CT/CT Head WO IV EXAM: CT Head WO IV CLINICAL DATA: NEUROLOGIC DEFICIT COMPARISON: CORRELATION IS MADE WITH THE EXAM OF FEBRUARY 07, 2018 FINDINGS: There is no mass or mass effect. There is no hemorrhage or hydrocephalus. There are no extra-axial fluid collections. There are no sites of abnormal attenuation. IMPRESSION: NO PLAIN CT EVIDENCE OF ACUTE INTRACRANIAL PROCESS. Colton George MD 11/06/192026 Thank you for allowing us to participate in the care of your patient.
== END 2019-11-06 20:50 | disposition home or self-care (01) ==
LOC: VM.ED 18:58
DX: G45.9 Transient cerebral ischemic attack, unspecified (principal); I10 Essential (primary) hypertension; F41.9 Anxiety disorder, unspecified; M19.90 Unspecified osteoarthritis, unspecified site; Z87.891 Personal history of nicotine dependence; Z88.8 Allergy status to other drugs, medicaments and biological substances; Z88.5 Allergy status to narcotic agent; Z79.899 Other long term (current) drug therapy
CPT/HCPCS: 36415; 70450; 80048; 81001; 85025; 85610; 87086; 93005; 99284-GF; 99285-25

== ENCOUNTER 2021-10-25 08:30 | Inpatient (IN) | payer MEDICARE, OTHER ==
[2021-10-25] MEDS ORDERED: Sodium Chloride 0.9% 10 ML Syringe FLUSH PRN (08:42)
[2021-10-25] MEDS ORDERED: cefTRIAXone 2 GM Vial IVPUSH ONE (09:20)
--- NOTE | 2021-10-25 09:20 | EDM.PDOC ---
ED HPI GENERAL MEDICAL PROBLEM - General Time Seen by Provider: 10/25/21 08:30 Source of Information: Reports: Patient, EMS, RN History Limitations: Reports: No Limitations - History of Present Illness INITIAL COMMENTS - FREE TEXT/NARRATIVE: Pt. presents to ER via EMS as a trauma code. Pt. was found lying on the floor of her bedroom this AM by family. Pt. reports that she feel the night before, but is unable to recall when, specifically. Family stated to EMS that she has been falling more frequently recently. She has extensive bruising to her face that family states she sustained in a fall previously. Pt. was confused on scene. She was moving her upper and lower extremities and was following commands. No facial droop noted. She was able to provide a ROS, but did not recall the events of this incident, and did not know where she was shortly after arrival to ER. She did not know that it was Thanksgiving, but did recognize and communicate with her son. Son states that she has been weak recently, contributing to her falls. She resides in an apartment and lives alone. Trauma code was called because the patient was on coumadin and struck her head. Pt. only complaint is of some facial pain and L hip pain. She denies any chest pain, shortness of breath, abdominal pain, lightheadedness, nausea, vomiting, fever, chills or recent ill contacts. Pt. did appear to have struck her face. She has some dried blood in her nares, as well as on her lips and to her L temporal area. Onset: Today Onset Date: 10/24/21 Location: Reports: Lower Extremity, Left (L hip) - Related Data Allergies Allergy/AdvReac Type Severity Reaction Status Date / Time egg Allergy Stomach Verified 02/17/21 10:58 Upset aspirin [From Aggrenox] AdvReac Nausea and Verified 11/06/19 19:02 Vomiting codeine AdvReac Nausea Verified 11/06/19 19:02 dipyridamole [From Aggrenox] AdvReac Nausea and Verified 11/06/19 19:02 Vomiting etodolac [From Lodine] AdvReac Nausea Verified 11/06/19 19:02 homatropine [From Hycodan] AdvReac Nausea Verified 11/06/19 19:02 homatropine methylbromide AdvReac Nausea Verified 11/06/19 19:02 [From Hycodan] hydrocodone bitartrate AdvReac Nausea Verified 11/06/19 19:02 [From Hycodan] tramadol HCl [From Ultram] AdvReac Nausea Verified 11/06/19 19:02 Home Meds: Home Meds Ascorbic Acid [Vitamin C] 1,000 mg PO DAILY 11/15/13 [History] Cyanocobalamin (Vitamin B12) [Vitamin B12] 1,000 mcg PO DAILY 11/15/13 [History] Metoprolol Succinate [Toprol XL] 150 mg PO DAILY 11/15/13 [History] Occuvite 1 tab PO DAILY 02/06/18 [History] Warfarin [Coumadin] 2.5 mg PO ASDIRECTED 05/04/18 [History] chlordiazePOXIDE [Librium] 5 mg PO DAILY PRN 05/04/18 [History] Docusate Calcium 240 mg PO DAILY PRN 02/17/21 [History] Lactobacillus Acidophilus [Probiotic] 1 cap PO DAILY 02/17/21 [History] Past Medical History Cardiovascular History: Reports: Afib, High Cholesterol, Hypertension, Pacemaker Gastrointestinal History: Reports: Diverticulosis Musculoskeletal History: Reports: Arthritis Neurological History: Reports: TIA Psychiatric History: Reports: Anxiety Oncologic (Cancer) History: Reports: Other (See Below) Other Oncologic History: malignant neoplasm of gallbladder - Past Surgical History HEENT Surgical History: Reports: Cataract Surgery Cardiovascular Surgical History: Reports: Pacer, Other (See Below) Other Cardiovascular Surgeries/Procedures: Pacemaker placed 02/18/18 Female Surgical History: Reports: Hysterectomy Musculoskeletal Surgical History: Reports: Other (See Below) Other Musculoskeletal Surgeries/Procedures:: trigger finger release ED ROS GENERAL - Review of Systems Review Of Systems: See Below Constitutional: Reports: Weakness. Denies: Fever, Chills, Malaise, Diaphoresis HEENT: Reports: Nosebleed (resolved on its own), Other (See HPI). Denies: Rhinitis, Sinus Problem, Throat Pain, Vertigo, Vision Change Respiratory: Reports: No Symptoms. Denies: Shortness of Breath, Wheezing, Pleuritic Chest Pain, Cough, Sputum Cardiovascular: Reports: No Symptoms Endocrine: Reports: No Symptoms GI/Abdominal: Reports: No Symptoms : Reports: No Symptoms Musculoskeletal: Reports: Joint Pain (L hip pain), Other (Abrasions to R ankle). Denies: Neck Pain, Back Pain Neurological: Reports: Confusion, Tremors, Weakness. Denies: Dizziness, Headache, Numbness, Paresthesia, Seizure, Syncope, Trouble Speaking, Change in Speech Psychiatric: Reports: No Symptoms Hematologic/Lymphatic: Reports: No Symptoms Immunologic: Reports: No Symptoms ED EXAM, GENERAL - Physical Exam Exam: See Below Exam Limited By: No Limitations General Appearance: Alert, WD/WN, No Apparent Distress Eye Exam: Bilateral Eye: Normal Fundi, Normal Inspection, PERRL Ears: Normal External Exam, Normal Canal, Hearing Grossly Normal, Normal TMs Ear Exam: Bilateral Ear: Auricle Normal, Canal Normal, TM normal Nose: Other (dried blood in nares. Edema noted to nose. No obvious deformity noted.) Throat/Mouth: Normal Lips, Normal Teeth, Normal Gums, No Airway Compromise, Other (dried blood around mouth/on teeth) Head: Normocephalic, Facial Tenderness, Other (significant ecchymosis to L lateral face.) Neck: Normal Inspection, Supple, Non-Tender, Full Range of Motion Respiratory/Chest: No Respiratory Distress, Normal Breath Sounds, Decreased Breath Sounds (Decreased breath sounds L lung base.) Cardiovascular: Irregularly Irregular Peripheral Pulses: 4+: Radial (L) GI/Abdominal: Soft, Non-Tender, No Organomegaly, No Distention, No Mass, Pelvis Stable (Female) Exam: Deferred Rectal (Female) Exam: Deferred Back Exam: Normal Inspection, Full Range of Motion Extremities: Other (pain on palp of L hip, no crepitus. Numerous abrasions noted to lower extremities.) Neurological: Alert, CN II-XII Intact, No Motor/Sensory Deficits, Confused Psychiatric: Normal Affect, Normal Mood Skin Exam: Dry, Cool Lymphatic: No Adenopathy #1 Interpretation Rhythm: A-Fib Course - Orders/Labs/Meds Orders: Active Orders 24 hr Category Date Time Status EKG Documentation Completion [RC] STAT Care 10/25/21 08:42 Active CORONAVIRUS COVID-19 RAPID [MOLEC] Stat Lab 10/25/21 10:12 Ordered CULTURE BLOOD [BC] Stat Lab 10/25/21 09:13 Received CULTURE BLOOD [BC] Stat Lab 10/25/21 09:16 Received CULTURE URINE [RM] Stat Lab 10/25/21 09:44 Received REFLEX LACTIC ACID YES OR NO [CHEM] Routine Lab 10/25/21 09:49 Received Sodium Chloride 0.9% [Saline Flush] Med 10/25/21 08:42 Active 10 ml FLUSH ASDIRECTED PRN Blood Culture x2 Reflex Set [OM.PC] Stat Oth 10/25/21 08:43 Ordered Peripheral IV Insertion Adult [OM.PC] Routine Oth 10/25/21 08:43 Ordered Medication Orders Sodium Chloride (Sodium Chloride 0.9% 10 Ml Syringe) 10 ml FLUSH ASDIRECTED PRN PRN Reason: Keep Vein Open Labs: Laboratory Tests 10/25/21 10/25/21 10/25/21 Range/Units 09:16 09:16 09:16 WBC 12.3 H (4.0-10.0) x10^3/uL RBC 4.57 (4.00-5.50) x10^6/uL Hgb 14.1 (12.0-16.0) g/dL Hct 42.1 (33.0-47.0) % MCV 92.1 (78.0-93.0) fL MCH 30.9 (26.0-32.0) pg MCHC 33.5 (32.0-36.0) g/dL RDW Coeff of Jeffry 12.9 (10.0-15.0) % Plt Count 173 (130-400) x10^3/uL Immature Gran % (Auto) 0.20 (0.00-0.43) % Neut % (Auto) 87.6 H (50.0-80.0) % Lymph % (Auto) 5.8 L (25.0-50.0) % [place] % (Auto) 6.3 (2.0-11.0) % Eos % (Auto) 0.0 (0.0-4.0) % Baso % (Auto) 0.1 L (0.2-1.2) % Neut # (Auto) 10.8 H (1.8-7.7) x10^3/uL Lymph # (Auto) 0.7 L (1.0-4.8) x10^3/uL [place] # (Auto) 0.8 (0.0-0.8) x10^3/uL Eos # (Auto) 0.0 (0.0-0.5) x10^3/uL Baso # (Auto) 0.0 (0.0-0.2) x10^3/uL Immature Gran # (Auto) 0.02 (0.00-0.07) x10^3/uL PT 26.9 H (9.9-12.5) SEC INR 2.4 (2.0-3.5) APTT (25.6-32.8) SEC Sodium 140 (136-145) mmol/L Potassium 3.8 (3.5-5.1) mmol/L Chloride 102 (98-107) mmol/L Carbon Dioxide 26 (21-32) mmol/L Anion Gap 15.8 H (5-15) mmol/L BUN 21 H (7-18) mg/dL Creatinine 1.9 H (0.55-1.02) mg/dL Est Cr Clr Drug Dosing TNP Estimated GFR (MDRD) 25 Glucose 152 H (70-99) mg/dL Lactic Acid (0.4-2.0) mmol/L Calcium 9.5 (8.5-10.1) mg/dL Corrected Calcium 10.4 H (8.5-10.1) mg/dL Phosphorus 3.6 (2.6-4.7) mg/dL Magnesium 1.7 L (1.8-2.4) mg/dL Total Bilirubin 1.4 H (0.2-1.0) mg/dL AST 92 H (15-37) U/L ALT 32 (14-59) U/L Alkaline Phosphatase 112 (46-116) U/L Creatine Kinase 1514 H* (26-192) U/L Troponin I High Sens 474 H* (<=51) ng/L C-Reactive Protein 7.2 H (<=0.9) mg/dL Total Protein 6.7 (6.4-8.2) g/dL Albumin 2.9 L (3.4-5.0) g/dL Globulin 3.8 Albumin/Globulin Ratio 0.76 Urine Color (YELLOW) Urine Appearance (CLEAR) Urine pH (5.0-8.0) Ur Specific [place] Urine Protein (NEGATIVE) mg/dL Urine Glucose (UA) (NEGATIVE) mg/dL Urine Ketones (NEGATIVE) mg/dL Urine Occult Blood (NEGATIVE) Urine Nitrite (NEGATIVE) Urine Bilirubin (NEGATIVE) Urine Urobilinogen (0.2) EU/dL Ur Leukocyte Esterase (NEGATIVE) U Hyaline Cast (Auto) Urine RBC (NOT SEEN) /HPF Urine WBC (NOT SEEN) /HPF Ur Squamous Epith Cells (NOT SEEN) /HPF Amorphous Sediment Urine Bacteria (NOT SEEN) /HPF Granular Casts (Auto) Urine Mucus (NOT SEEN) /LPF 10/25/21 10/25/21 10/25/21 Range/Units 09:16 09:16 09:44 WBC (4.0-10.0) x10^3/uL RBC (4.00-5.50) x10^6/uL Hgb (12.0-16.0) g/dL Hct (33.0-47.0) % MCV (78.0-93.0) fL MCH (26.0-32.0) pg MCHC (32.0-36.0) g/dL RDW Coeff of Jeffry (10.0-15.0) % Plt Count (130-400) x10^3/uL Immature Gran % (Auto) (0.00-0.43) % Neut % (Auto) (50.0-80.0) % Lymph % (Auto) (25.0-50.0) % [place] % (Auto) (2.0-11.0) % Eos % (Auto) (0.0-4.0) % Baso % (Auto) (0.2-1.2) % Neut # (Auto) (1.8-7.7) x10^3/uL Lymph # (Auto) (1.0-4.8) x10^3/uL [place] # (Auto) (0.0-0.8) x10^3/uL Eos # (Auto) (0.0-0.5) x10^3/uL Baso # (Auto) (0.0-0.2) x10^3/uL Immature Gran # (Auto) (0.00-0.07) x10^3/uL PT (9.9-12.5) SEC INR (2.0-3.5) APTT 36.0 H (25.6-32.8) SEC Sodium (136-145) mmol/L Potassium (3.5-5.1) mmol/L Chloride (98-107) mmol/L Carbon Dioxide (21-32) mmol/L Anion Gap (5-15) mmol/L BUN (7-18) mg/dL Creatinine (0.55-1.02) mg/dL Est Cr Clr Drug Dosing Estimated GFR (MDRD) Glucose (70-99) mg/dL Lactic Acid 3.0 H* (0.4-2.0) mmol/L Calcium (8.5-10.1) mg/dL Corrected Calcium (8.5-10.1) mg/dL Phosphorus (2.6-4.7) mg/dL Magnesium (1.8-2.4) mg/dL Total Bilirubin (0.2-1.0) mg/dL AST (15-37) U/L ALT (14-59) U/L Alkaline Phosphatase (46-116) U/L Creatine Kinase (26-192) U/L Troponin I High Sens (<=51) ng/L C-Reactive Protein (<=0.9) mg/dL Total Protein (6.4-8.2) g/dL Albumin (3.4-5.0) g/dL Globulin Albumin/Globulin Ratio Urine Color Dark yellow H (YELLOW) Urine Appearance Cloudy H (CLEAR) Urine pH 5.5 (5.0-8.0) Ur Specific [place] >=1.030 Urine Protein 30 H (NEGATIVE) mg/dL Urine Glucose (UA) Negative (NEGATIVE) mg/dL Urine Ketones Trace H (NEGATIVE) mg/dL Urine Occult Blood Moderate H (NEGATIVE) Urine Nitrite Negative (NEGATIVE) Urine Bilirubin Small H (NEGATIVE) Urine Urobilinogen 2.0 H (0.2) EU/dL Ur Leukocyte Esterase Trace H (NEGATIVE) U Hyaline Cast (Auto) Few Urine RBC 10-20 H (NOT SEEN) /HPF Urine WBC 5-10 H (NOT SEEN) /HPF Ur Squamous Epith Cells Few H (NOT SEEN) /HPF Amorphous Sediment Few Urine Bacteria Moderate H (NOT SEEN) /HPF Granular Casts (Auto) Few Urine Mucus Few H (NOT SEEN) /LPF Meds: Medications Generic Name Dose Route Start Last Admin Trade Name Freq PRN Reason Stop Dose Admin Sodium Chloride 10 ml 10/25/21 08:42 Sodium Chloride 0.9% 10 Ml Syringe FLUSH ASDIRECTED PRN Keep Vein Open Discontinued Medications Generic Name Dose Route Start Last Admin Trade Name Freq PRN Reason Stop Dose Admin Ceftriaxone Sodium 2 gm 10/25/21 09:20 Ceftriaxone 2 Gm Vial IVPUSH 10/25/21 09:21 STAT ONE - Radiology Interpretation Free Text/Narrative:: CT brain negative for acute pathology. CT facial bones positive for comminuted nasal bone fracture. No other acute pathology noted. Incidental finding of C2-C3 and C3-C4 spondylolisthesis with degenerative anterolisthesis Chest x-ray showed small L sided pleural effusion. No pulmonary contusion, failure pattern, or infiltrate. Plain film pelvis and L hip obtained, No evidence of acute pathology. Incidental finding of lumbar spondylolisthesis Departure - Departure Time of Disposition: 10:25 Disposition: Admitted As Inpatient 68 Clinical Impression: Afib, Atrial fibrillation, Rhabdomyolysis, Nasal bone fracture - Discharge Information Referrals: Rochelle Castro DO [Primary Care Provider] - - Problem List Review Problem List Initiated/Reviewed/Updated: Yes - My Orders Last 24 Hours: My Active Orders 10/25/21 08:42 EKG Documentation Completion [RC] STAT Sodium Chloride 0.9% [Saline Flush] 10 ml FLUSH ASDIRECTED PRN 10/25/21 08:43 Blood Culture x2 Reflex Set [OM.PC] Stat Peripheral IV Insertion Adult [OM.PC] Routine 10/25/21 09:13 CULTURE BLOOD [BC] Stat 10/25/21 09:16 CULTURE BLOOD [BC] Stat 10/25/21 09:44 CULTURE URINE [RM] Stat 10/25/21 09:49 REFLEX LACTIC ACID YES OR NO [CHEM] Routine 10/25/21 10:12 CORONAVIRUS COVID-19 RAPID [MOLEC] Stat - Assessment/Plan Last 24 Hours: My Active Orders 10/25/21 08:42 EKG Documentation Completion [RC] STAT Sodium Chloride 0.9% [Saline Flush] 10 ml FLUSH ASDIRECTED PRN 10/25/21 08:43 Blood Culture x2 Reflex Set [OM.PC] Stat Peripheral IV Insertion Adult [OM.PC] Routine 10/25/21 09:13 CULTURE BLOOD [BC] Stat 10/25/21 09:16 CULTURE BLOOD [BC] Stat 10/25/21 09:44 CULTURE URINE [RM] Stat 10/25/21 09:49 REFLEX LACTIC ACID YES OR NO [CHEM] Routine 10/25/21 10:12 CORONAVIRUS COVID-19 RAPID [MOLEC] Stat Plan: Pt. will be admitted acutely. Tod Rdz will be attending/admitting. Pt. is a code 2, DNR/DNI. Pt. was started on normal saline at 125ml/hr. She was given 2 gm of rocephin IV for UTI/initial concerns about L lower lobe pneumonia, although radiology did not favor this. Discussed findings with pt. son. He is in agreement with plan of care.
--- NOTE | 2021-10-25 09:45 | CR ---
[id number] RAD/RAD Pelvis 1V W 2V Left Hip Exam: RAD Pelvis 1V W 2V Left Hip Indication:LEFT HIP/PELVIC PAIN POST FALL. Comparison: No prior imaging for comparison. Discussion/Impression: Left femoroacetabular osteoarthritis with joint space narrowing. No fracture or dislocation. No AVN or erosive changes. Diffuse demineralization throughout the bones of the pelvis. Vascular calcifications in the pelvis and proximal left thigh. Incidentally noted is advanced L4-5 and L5-S1 spondylosis. Jose García MD 10/25/21 0944 Thank you for allowing us to participate in the care of your patient.
--- NOTE | 2021-10-25 09:45 | CR ---
[id number] RAD/RAD Chest Portable EXAM: RAD Chest Portable INDICATION: TRAUMA CODE - FALL. COMPARISON: None. DISCUSSION: Left chest wall cardiac conduction device. Cardiomediastinal silhouette is normal in size and contour. Hazy opacification overlying the left lung base likely representing a small pleural effusion. Pulmonary hyperinflation. No definite pneumothorax. No definite radiographic evidence of acute rib fracture. Chronic changes of the shoulders bilaterally. IMPRESSION: Small left pleural effusion. Dylan Lemon DO 10/25/21 0944 Thank you for allowing us to participate in the care of your patient.
--- NOTE | 2021-10-25 09:48 | CT ---
[id number] CT/CT Head WO IV EXAM: CT Head WO IV CLINICAL DATA: TRAUMA CODE - FELL AND HIT HEAD. COMPARISON STUDY: November 06, 2019. FINDINGS: No intracranial hemorrhage, extra-axial fluid collection, mass, or acute ischemia. No hydrocephalus. Calvarium intact. Paranasal sinuses and mastoid air cells are clear. IMPRESSION: No acute intracranial findings. Jose García MD 10/25/21 0947 Thank you for allowing us to participate in the care of your patient.
--- NOTE | 2021-10-25 09:52 | CT ---
[id number] CT/CT Facial Bones WO IV Exam: CT Facial Bones WO IV Indication:TRAUMA CODE - FALL, STRUCK HEAD/FACE. Comparison: No prior imaging for comparison. Discussion/Impression: Acute appearing comminuted fractures of the bilateral nasal bones. Nondisplaced fracture of the anterior bony nasal septum. Small air-fluid level in left maxillary sinus. No associated sinus fracture identified. Findings are most consistent with mild changes of sinusitis. Paranasal sinuses are otherwise clear. Mastoid air cells middle ear cavities are clear. Cervical spondylosis at C2-3 and C3-4 with grade 1 degenerative anterolisthesis at C3-4 secondary to advanced facet joint arthropathy. Jose García MD 10/25/21 0951 Thank you for allowing us to participate in the care of your patient.
[2021-10-25 09:56] LABS: CHLORIDE,CL 102 mmol/L (98-107); SODIUM,NA 140 mmol/L (136-145)
[2021-10-25 09:57] LABS: ANION GAP 15.8 mmol/L (5-15)
[2021-10-25] MEDS: Sodium Chloride 0.9% 1,000 ML IV SCH ×3 (14:08→21:36)
[2021-10-25] MEDS ORDERED: Hypromellose 0.3% Ophth Soln 15 ML Bottle EYEBOTH PRN (15:27)
--- NOTE | 2021-10-25 19:20 | HP ---
CHIEF COMPLAINTS: 1. Fall. 2. Closed head injury. HISTORY OF PRESENT ILLNESS: The patient was brought to the ER at [facility] via EMS as a trauma code. The patient was found lying on the floor in her bedroom around 7:30 to 8 o'clock this morning. The patient's last conversation with her family was 5 p.m. last evening. The patient's family state they believe she has been down on the floor greater than 12 hours. The patient recently saw me in clinic on 10/17 for low back pain secondary to falls. The patient is a poor historian given altered mental status. Information is obtained from family and ER records. According to EMS records, the patient was confused on the scene. She was moving her upper and lower extremities and was following commands. No stroke-like symptoms. The patient states that she has felt very weak lately, which may be contributing to her falls. The patient does live alone. She lives in an apartment. The patient currently denies any headache. The patient denies any shortness of breath or chest pain. No recent fevers or chills. The patient denies any cough. The patient does complain of facial pain secondary to the fall. No visual field disturbances. The patient denies any neck or back pain. No abdominal complaints. The patient states she feels very weak and tired. ER COURSE: The patient was found to have acute comminuted fractures of the bilateral nasal bones. Nondisplaced fracture of the anterior bony nasal septum. CT scan of the head was normal. Chest x-ray did not show any acute findings. The patient's laboratory work reveals a lactic acid of 3.0, CK of 1514 and a troponin of 474. PAST MEDICAL HISTORY: 1. Generalized anxiety disorder. 2. Chronic low back pain. 3. Bradycardia. 4. Bilateral cataracts. 5. Cervical cancer. 6. Cerebrovascular disease. 7. DJD. 8. Gout. 9. Hypertension. 10.Mixed hyperlipidemia. 11.Irritable bowel syndrome. 12.Right kidney cyst. 13.Malignant neoplasm of the gallbladder. 14.Osteoarthritis. 15.History of DC. 16.TIA. 17.Persistent atrial fibrillation. PAST SURGICAL HISTORY: 1. Carpal tunnel release. 2. Cataract removal. 3. Finger trigger release. 4. Hysterectomy with BSO. 5. Ovarian cyst removal. 6. Pacemaker placement. FAMILY HISTORY: Noncontributory. SOCIAL HISTORY: The patient does not smoke cigarettes. The patient does not drink alcohol. The patient is . The patient lives alone in her own apartment. Her apartment is on ground level. ALLERGIES: 1. Latex products. 2. Dipyridamole. 3. Egg yolk. 4. Hydrocodone. 5. Lactose. 6. NSAIDs. 7. Penicillins. MEDICATIONS: 1. Chlordiazepoxide 5 mg 1 capsule 3 times a day as needed for anxiety. 2. Metoprolol succinate 100 mg 1 tablet p.o. daily. 3. Coumadin 5 mg as directed. 4. Aspirin 81 mg p.o. daily. 5. Multivitamin 1 tablet p.o. daily. 6. Colace 100 mg 1 capsule twice a day as needed. 7. Refresh eye drops 1 drop to both eyes as needed. 8. Vitamin C 1000 mg 1 tablet p.o. daily. 9. Vitamin B12, 50 mcg 1 tablet p.o. daily. REVIEW OF SYSTEMS: See HPI. PHYSICAL EXAMINATION: Vital Signs: Height 5 feet, weight 121.3 pounds, temperature 98, pulse 69, blood pressure 149/99, and oxygen saturation 95% on room air. Skin: Fragile. Facial bruising of the left cheek, left orbit, and right orbit. She also has bruising on the top of her head. The patient has bruising around the nose. The patient has an abrasion to the left bahai. Otherwise, skin is intact, warm and dry. Respiratory: Lungs are decreased but clear throughout. Cardiovascular: Irregularly irregular rhythm, regular rate. Abdomen: Soft and nontender. Bowel sounds are hypoactive x4. Extremities: No edema. Neurological: The patient is confused to place and time. The patient has difficulty answering questions as she gets confused with her answers. The patient is alert. The patient does not appear to be in any acute distress. LABORATORY STUDIES: 1. CBC: White blood cell count 12.3, hemoglobin 14.1, hematocrit 42.1, and platelets are 173,000. 2. PT 26.9, INR 2.4, and PTT 36.0. 3. CMP: Sodium 140, potassium 3.8, chloride 102, CO2 of 26, anion gap 15.8, BUN 21, creatinine 1.9, GFR 25, and glucose 152; calcium 9.5, AST 92, ALT 32, alkaline phosphatase 112, and total protein 6.7. 4. Lactic acid 3.0. 5. CK 1514. 6. Troponin 474. 7. C-reactive protein 7.2. 8. UA shows a small UTI. ASSESSMENT: 1. Closed head injury with unknown loss of consciousness. 2. Rhabdomyolysis. 3. Dehydration. 4. Fall at home. 5. Weakness and deconditioning. 6. Atrial fibrillation. 7. Essential hypertension. 8. Mixed hyperlipidemia. PLAN: The patient will be admitted acutely to the acute care floor at [facility]. We will restart IV fluids to decrease the CK. Recheck lactic acid. Continue home medications the same. Consult PT and OT. Case Management for possible placement to retirement versus assisted living. The patient is a code 2. The patient wishes not to transfer to a higher level of care should the need arise. Depending upon physical and occupational therapy, I do recommend retirement placement after the patient has completed her acute stay. We will do neuro checks every 4 hours. Recheck laboratory work tomorrow morning. TB: 10/25/2021 12:25:53 MODL: 10/25/2021 19:13:22 /[id number]
[2021-10-25] MEDS: Docusate Sodium 100 MG Cap PO SCH (20:02)
[2021-10-26] MEDS ORDERED: Warfarin 2.5 MG Tab PO SCH ×2 (08:00→15:27)
[2021-10-26 08:21] LABS: ANION GAP 14.4 mmol/L (5-15)
[2021-10-26] MEDS: Beta-Carotene (Vitamin A) w/Vitamin C & E plus Minerals Tab PO SCH (08:47)
[2021-10-26] MEDS: Aspirin 81 MG Tab.EC PO SCH (08:47)
[2021-10-26] MEDS: Docusate Sodium 100 MG Cap PO SCH ×2 (08:47→21:08)
[2021-10-26] MEDS: Ferrous Sulfate 325 MG Tab PO SCH (08:47)
[2021-10-26] MEDS: Metoprolol Succinate 50 MG Tab.ER PO SCH (08:48)
[2021-10-26] MEDS: Ascorbic Acid 500 MG Tab PO SCH (08:52)
[2021-10-26] MEDS: cefTRIAXone 1 GM Vial IVPUSH SCH (09:05)
[2021-10-26] MEDS: Sodium Chloride 0.9% 1,000 ML IV SCH ×2 (09:05→17:41)
[2021-10-26] MEDS ORDERED: Potassium Chloride 20 MEQ Tab.ER PO ONE (11:25)
--- NOTE | 2021-10-26 11:48 | PN ---
Progress Note for ROHINI STALLINGS Date: 10/26/2021 Room #: [id number] CHIEF COMPLAINT: 1. Fall. 2. Head injury. SUBJECTIVE: Hospital day #2 on an 89-year-old female patient who was seen in the emergency room last evening after she was found down at home. Unknown of time. The patient had been lying on the ground. Workup in the ER did not show any acute pathology. The patient's CT scan of the head was normal. The patient was found to be in rhabdomyolysis and patient also had somewhat of altered mental status. The patient is very confused this morning. She is disoriented to place and time. This is a change from the patient's baseline. The patient is usually alert and oriented. The patient denies any headaches, dizziness, or lightheadedness. She states that her vision is okay. She does not have any unilateral weakness. Patient denies any chest pain or palpitations. No leg swelling. No shortness of breath or cough. The patient seems to get agitated when you correct her inappropriate responses. The patient has not had any fevers or chills. She does not feel very hungry, she has always had a poor appetite. No abdominal complaints. The patient states she continues to feel very tired and weak. OBJECTIVE: Vital Signs: Temperature 98.6, pulse 78, blood pressure 139/89, respiratory rate 16, oxygen saturation 90% on room air. Skin: Fragile. Facial bruising of the left cheek and left orbit and right orbit. She also has bruising on the top of her head. Patient has bruising around the nose. The patient has an abrasion to the left denominational. Respiratory: Lungs are decreased, but clear throughout. Cardiovascular: Irregularly irregular rhythm, regular rate. Abdomen: Soft and nontender. Bowel sounds are hypoactive x4. Extremities: No edema. Neurological: Patient is completely confused. The patient is impulsive. The patient has not been following commands. The patient does not appear to be in any acute distress. LABORATORY STUDIES: 1. CBC: White blood cell count 10.2, hemoglobin 13.9, hematocrit 42.1, platelets 188,000. 2. PT 34.8, INR 3.2. 3. CMP: Sodium 143, potassium 3.4, chloride 107, CO2 of 25, anion gap 14.4, BUN 24, creatinine 1.6, GFR 30, calcium 8.8. AST 106, ALT 41, alkaline phosphatase 97, total protein 6.1. 4. CK is 759. 5. Ferritin 295. 6. Lactic acid 1.5. ASSESSMENT: 1. Closed head injury with unknown loss of consciousness. 2. Rhabdomyolysis. 3. Dehydration. 4. Fall at home. 5. Weakness and deconditioning. 6. Atrial fibrillation. 7. Essential hypertension. 8. Mixed hyperlipidemia. PLAN: Hospital day #2 on an 89-year-old female patient who was admitted yesterday for the above diagnoses. Continue with PT, OT. Case management for discharge planning to the prison versus assisted living. The patient is a code 2. The patient wishes to transfer to a higher level of care should the need arise. We will continue on IV fluids due to the elevation in the CK. I do recommend prison placement after the patient has completed her acute stay. We will continue with neuro checks every 4 hours. Recheck laboratory work tomorrow. TB: 10/26/2021 11:08:28 MODL: 10/26/2021 11:43:13 /[id number]
[2021-10-27] MEDS: Sodium Chloride 0.9% 1,000 ML IV SCH (04:37)
[2021-10-27] MEDS ORDERED: Sodium Chloride 0.9% 1,000 ML IV SCH (07:15)
[2021-10-27 07:18] LABS: ANION GAP 13.1 mmol/L (5-15)
[2021-10-27] MEDS ORDERED: Magnesium Sulfate/Water 2 GM in Premix Bag 1 BAG IV ONE (07:57)
[2021-10-27] MEDS: cefTRIAXone 1 GM Vial IVPUSH SCH (08:38)
[2021-10-27] MEDS: Aspirin 81 MG Tab.EC PO SCH ×2 (08:51→09:12)
[2021-10-27] MEDS: Metoprolol Succinate 50 MG Tab.ER PO SCH ×2 (08:53→09:12)
[2021-10-27] MEDS: Ferrous Sulfate 325 MG Tab PO SCH (09:10)
[2021-10-27] MEDS: Docusate Sodium 100 MG Cap PO SCH ×2 (09:10→20:00)
[2021-10-27] MEDS: Beta-Carotene (Vitamin A) w/Vitamin C & E plus Minerals Tab PO SCH (09:11)
[2021-10-27] MEDS: Ascorbic Acid 500 MG Tab PO SCH (09:11)
[2021-10-27] MEDS ORDERED: Iopamidol 612 MG/ML 100 ML Bottle IVPUSH ONE (10:00)
--- NOTE | 2021-10-27 11:13 | CT ---
[id number] CT/CT Head W IV EXAM: CT Head W IV INDICATION: AMS,CHI,ACUTE CONFUSION. COMPARISON: November 06, 2019. DISCUSSION: Evaluation for hemorrhage is limited without an unenhanced images. Mild generalized atrophy and mild to moderate chronic small vessel ischemic changes. No mass effect, midline shift, hydrocephalus, acute territorial infarct, or abnormal contrast enhancement. The orbits and paranasal sinuses are unremarkable. IMPRESSION: 1. No acute findings. Carlos Simons MD 10/27/21 1111 Thank you for allowing us to participate in the care of your patient.
--- NOTE | 2021-10-27 13:00 | PN ---
Progress Note for ROHINI STALLINGS Date: 10/27/2021 Room #: VM.202 CHIEF COMPLAINT: 1. Fall. 2. Head injury. SUBJECTIVE: Hospital day #3 on an 89-year-old female patient who was seen in the emergency room a couple of days ago after she was found down at home. Unknown length of time. The patient was found on the ground. The workup in the ER did not show any acute pathology. The patient's CT scan of the head on admission was normal. However, the patient's CK was elevated greater than 1500, therefore, she was found to be in rhabdomyolysis and patient has altered mental status. The patient is somewhat of a poor historian, however, she states she does not have a headache. No visual field disturbances. No dizziness or lightheadedness. The patient denies any problems with breathing. No shortness of breath or cough. Patient denies any chest pain or palpitations. No abdominal pain. No nausea, vomiting, or diarrhea. The patient has periorbital ecchymosis which is improving. No fevers or chills that she is aware of. REVIEW OF SYSTEMS: See HPI. OBJECTIVE: Vital signs: Weight 127.1 pounds, temperature 98.2, pulse 74, blood pressure 118/74, respiratory rate 18, oxygen saturation 93% on room air. Skin: Fragile. Facial bruising of the left cheek and left and right orbits. She also has bruising on the top of the head. The patient has bruising around the nose. The patient has an abrasion to the left anglican that is scabbed over. Respiratory: Lungs are decreased but clear throughout. Cardiovascular: Irregularly irregular rhythm. Regular rate. Abdomen: Soft, nontender. Bowel sounds are hypoactive x4. Extremities: No edema. Neurological: The patient is confused. Patient is somewhat impulsive. The patient does not appear to be in any acute distress. LABORATORY STUDIES: 1. CBC: White blood cell count 8.4, hemoglobin 12.4, hematocrit 37.9, and platelets 160,000. 2. CMP: Sodium 143, potassium 4.1, chloride 111, CO2 of 23, anion gap 13.1, BUN 24, creatinine 1.5, GFR 33, calcium 8.4, magnesium 1.7. AST 64, ALT 34, alkaline phosphatase 190, protein 5.2. 3. CK 139. ASSESSMENT: 1. Closed head injury with unknown loss of consciousness. 2. Rhabdomyolysis. 3. Dehydration. 4. Fall at home. 5. Weakness and deconditioning. 6. Atrial fibrillation. 7. Essential hypertension. 8. Mixed hyperlipidemia. PLAN: Hospital day #3 on an 89-year-old female patient who was admitted to the acute care floor at [facility] for the above diagnoses. We will replace magnesium today. We will decrease fluids to 50 mL/hour. Rhabdo was improving. Repeat CT scan today given ongoing altered mental status and confusion. Speech Therapy will not be able to see the patient until Saturday, however, bedside swallow the patient did not pass. Therefore, we will keep her n.p.o. PT attempted to work with the patient; however, she was too dizzy to participate. Recheck laboratory work tomorrow. Anticipate discharge to the local group home. Continue with neuro checks. This patient was seen and examined by me as an [facility] provider. TB: 10/27/2021 12:09:59 MODL: 10/27/2021 12:53:04 /[id number]
[2021-10-28 07:36] LABS: ANION GAP 20.1 mmol/L (5-15)
[2021-10-28] MEDS ORDERED: Warfarin 2.5 MG Tab PO SCH (08:00)
[2021-10-28] MEDS ORDERED: Dextrose 5%-0.45% NaCl 1,000 ML IV SCH (09:00)
[2021-10-28] MEDS: cefTRIAXone 1 GM Vial IVPUSH SCH (09:41)
[2021-10-28] MEDS: Metoprolol Succinate 50 MG Tab.ER PO SCH (09:42)
[2021-10-28] MEDS: Aspirin 81 MG Tab.EC PO SCH (09:42)
[2021-10-28] MEDS: Ascorbic Acid 500 MG Tab PO SCH (09:51)
[2021-10-28] MEDS: Docusate Sodium 100 MG Cap PO SCH ×2 (09:51→20:04)
[2021-10-28] MEDS: Ferrous Sulfate 325 MG Tab PO SCH (09:51)
[2021-10-28] MEDS: Beta-Carotene (Vitamin A) w/Vitamin C & E plus Minerals Tab PO SCH (09:51)
--- NOTE | 2021-10-28 10:39 | PN ---
Progress Note for ROHINI STALLINGS Date: 10/28/2021 Room #: VM.214 CHIEF COMPLAINT: 1. Fall. 2. Head injury. SUBJECTIVE: Hospital day #4 on an 89-year-old female patient who was seen in the emergency room a couple of days ago after she was found down at home. Unknown length of time found down. The patient states today that she is feeling better. The patient denies any headaches, dizziness, or lightheadedness. Patient's mentation seems to be somewhat improving. She is very talkative this morning. The patient has not had any shortness of breath or chest pain. No palpitations. The patient denies any cough. Patient is still n.p.o. awaiting a speech pathology evaluation on Saturday. Patient has not had any abdominal complaints. Physical Therapy attempted to evaluate the patient yesterday, however, she got very dizzy. The patient has not had any fevers or chills. No nausea, vomiting, or diarrhea. Appetite has been good. No problems with urination or bowel movements. REVIEW OF SYSTEMS: See HPI. OBJECTIVE: Vital Signs: Weight 127 pounds, temperature 98.1, pulse 68, blood pressure 138/65, respiratory rate 18, and oxygen saturation 94% on room air. Skin: Fragile. Facial bruising on the left cheek and periorbital ecchymosis is improving. The abrasion on the left religious is also healing well. Respiratory: Lungs are decreased, but clear throughout. Cardiovascular: Irregularly irregular rhythm, regular rate. Abdomen: Soft, nontender. Bowel sounds are hypoactive x4. Extremities: No edema.- Neurologic: The patient is confused but improving. Impulsivity has improved. The patient does not appear to be in any acute distress. Patient is cooperative. The patient is oriented to self and place but disoriented to time. LABORATORY STUDIES: 1. CBC: White blood cell count 8.9, hemoglobin 13.3, hematocrit 41.0, platelets 211,000. 2. PT 91.6, INR 8.4. 3. BMP: Sodium 146, potassium 4.1, chloride 111, CO2 of 19, anion gap 20.1, BUN 26, creatinine 1.5, GFR 33, glucose 99, calcium 8.9. ASSESSMENT: 1. Closed head injury with unknown loss of consciousness. 2. Rhabdomyolysis. 3. Dehydration. 4. Fall at home. 5. Weakness and deconditioning. 6. Atrial fibrillation. 7. Essential hypertension. 8. Mixed hyperlipidemia. PLAN: Hospital day #4 on an 89-year-old female patient who was admitted to the acute care floor at [facility] for the above diagnoses. We will change patient's fluids to D5 1/2 due to elevated sodium. Continue all other medications the same. We will attempt thickened foods today; if not tolerated, we will continue n.p.o. status. Patient will be seen by Physical Therapy and Speech Therapy on Saturday. Depending upon how the patient does with therapy, family is considering assisted living versus [facility] at this time. Continue with neuro checks until confusion has resolved. This patient was seen and examined by me at [facility]. TB: 10/28/2021 09:44:04 MODL: 10/28/2021 10:21:41 /[id number]
[2021-10-29] MEDS: cefTRIAXone 1 GM Vial IVPUSH SCH (08:23)
[2021-10-29 08:38] LABS: ANION GAP 16.3 mmol/L (5-15)
[2021-10-29] MEDS: Aspirin 81 MG Tab.EC PO SCH (09:35)
[2021-10-29] MEDS: Docusate Sodium 100 MG Cap PO SCH (09:35)
[2021-10-29] MEDS: Beta-Carotene (Vitamin A) w/Vitamin C & E plus Minerals Tab PO SCH (09:35)
[2021-10-29] MEDS: Metoprolol Succinate 50 MG Tab.ER PO SCH (09:35)
[2021-10-29] MEDS: Ferrous Sulfate 325 MG Tab PO SCH (09:35)
[2021-10-29] MEDS: Ascorbic Acid 500 MG Tab PO SCH (09:36)
[2021-10-29] MEDS: Non-Formulary Medication 1 Each (Cyanocobalamin (Vitamin B-12) [Vitamin B-12] 50 MCG Table PO SCH (10:19)
--- NOTE | 2021-10-29 11:45 | DISCH ---
ADMITTING DIAGNOSES: 1. Closed head injury with unknown loss of consciousness. 2. Rhabdomyolysis. 3. Dehydration. 4. Fall at home. 5. Weakness and deconditioning. 6. Atrial fibrillation. 7. Essential hypertension. 8. Mixed hyperlipidemia. DISCHARGE DIAGNOSES: 1. Closed head injury with unknown loss of consciousness - stable/improving. 2. Rhabdomyolysis, resolved. 3. Dehydration, resolved. 4. Fall at home. 5. Weakness and deconditioning. 6. Atrial fibrillation. 7. Essential hypertension. 8. Mixed hyperlipidemia. HISTORY OF PRESENT ILLNESS: An 89-year-old female patient presented to the emergency room at [facility] via EMS as a trauma code on 10/25/2021. The patient was found lying on the floor in her bedroom around 7:30 to 8 o'clock that morning. The patient's last conversation was with her son at 5 p.m. the last evening. The patient's family states they do not know how long the patient was down on the floor. They are thinking it was greater than 12 hours. The patient had recently seen me in the clinic on 10/17 for low back pain secondary to fall. Upon admission, the patient was a poor historian given her confusion. The information obtained is from family in the ER record. When the EMS arrived at her place, she was very confused. She did not have any stroke-like symptoms. The patient was very weak. This may be contributing to her falls. BRIEF HOSPITAL COURSE: The patient remained hemodynamically stable, but very confused. She did have a repeat CT scan, which did not show any acute pathology. The patient's rhabdomyolysis resolved with IV fluids. The patient has not had any pain. The patient is very impulsive and does try to climb out of bed. The patient did not have any problems with urination or bowel movements. The patient has been kept n.p.o. due to risk of aspiration. The patient is to be seen by Speech Pathology tomorrow. CONSULTATIONS: 1. Case Management. 2. Physical Therapy. 3. Occupational Therapy. ACTIVITY: 1. Per PT recommendation. 2. Diet: N.p.o. with ice chips/sips with medications. 3. Code Status: Code 2. LABORATORY STUDIES: 1. CBC: White blood cell count 7.2, hemoglobin 12.7, hematocrit 39.5, platelet count 196,000. 2. PT 105.7, INR 9.7. 3. CMP: Sodium 146, potassium 4.3, chloride 112, CO2 22, anion gap 16.3, BUN 28, creatinine 1.3, GFR 39, glucose 126, calcium 9.0, AST 51, ALT 38, alkaline phosphatase 106. 4. CK 92. DISCHARGE MEDICATIONS: 1. Vitamin C 1000 mg p.o. daily. 2. Aspirin 81 mg 1 tablet p.o. daily. 3. Beta-carotene 1 tablet p.o. daily. 4. Calcium carbonate/vitamin-D 2 tablets p.o. daily. 5. Rocephin 1 gram IV daily, last dose 10/30/2021. 6. Librium 5 mg p.o. 3 times daily as needed. 7. Cyanocobalamin 50 mcg 1 tablet p.o. daily. 8. Colace 100 mg p.o. twice daily. 9. Ferrous sulfate 325 mg 1 tablet p.o. daily. 10.Gentle Tears 1 drop to both eyes daily as needed. 11.Metoprolol 100 mg p.o. daily. REVIEW OF SYSTEMS: Unable to obtain due to the patient's condition. DISCHARGE PHYSICAL EXAMINATION: Vital Signs: Temperature 96, pulse 78, blood pressure 134/70, respirations 18, oxygen saturation 94% on room air. Skin: Fragile. Facial bruising on the left cheek, left orbit, and right orbit is improving as well as the bruise on the top of her head. Bruising around the nose has resolved. The patient has an abrasion to the left shinto, which is improving. Otherwise, skin is intact, warm and dry. Respiratory: Lungs are decreased, but clear throughout. Cardiovascular: Irregularly regular rhythm, regular rate. Abdomen: Soft, nontender. Bowel sounds are hypoactive x4. Extremities: No edema. Neurological: The patient is very confused and impulsive. The patient has difficulty answering questions as she is confused with her answers. The patient is alert. The patient does not appear to be in any acute distress. ASSESSMENT: 1. Closed head injury with unknown loss of consciousness, stable/improving 2. Rhabdomyolysis, resolved. 3. Dehydration, resolved. 4. Fall at home. 5. Weakness and deconditioning. 6. Atrial fibrillation. 7. Essential hypertension. 8. Mixed hyperlipidemia. PLAN: The patient's status will be changed to swing bed today. Physical Therapy will skill the patient. At this time, my recommendation would be for long-term placement given her confusion and impulsivity. Continue all medications the same. We will give the patient 10 mg of IV vitamin K for her elevated INR. INR is probably elevated secondary to antibiotic use. The patient is a code 2. The patient does not wish to transfer to higher level of care should the need arise. Continue n.p.o. status until the patient is seen by Speech Therapy and then we will go by their recommendations for diet. The patient's admission H & P for her acute stay is current as of the date of this dictation and may be used for her Swing Bed admission. This patient was seen and examined by me as an [facility] provider. TB: 10/29/2021 10:00:43 MODL: 10/29/2021 11:40:04 /[id number]
== END 2021-10-29 10:16 | disposition swing bed (61) | DRG 965 ==
LOC: VM.ED 08:30 → VM.MS 11:19
PROVIDERS: ADMIT Nurse Practitioner Family; ATTEND Nurse Practitioner Family
DX: S06.9X9A Unspecified intracranial injury with loss of consciousness of unspecified duration, initial encounter (principal); T79.6XXA Traumatic ischemia of muscle, initial encounter; E86.0 Dehydration; W18.30XA Fall on same level, unspecified, initial encounter; E78.2 Mixed hyperlipidemia; I48.91 Unspecified atrial fibrillation; Z66 Do not resuscitate; R53.81 Other malaise; R53.1 Weakness; M62.82 Rhabdomyolysis; S02.2XXA Fracture of nasal bones, initial encounter for closed fracture; F41.1 Generalized anxiety disorder; Z85.41 Personal history of malignant neoplasm of cervix uteri; I25.2 Old myocardial infarction; W19.XXXA Unspecified fall, initial encounter; Z85.09 Personal history of malignant neoplasm of other digestive organs; Z90.710 Acquired absence of both cervix and uterus; Z91.81 History of falling; Z90.722 Acquired absence of ovaries, bilateral; Z88.0 Allergy status to penicillin; E78.00 Pure hypercholesterolemia, unspecified; Z95.0 Presence of cardiac pacemaker; I10 Essential (primary) hypertension; Y92.003 Bedroom of unspecified non-institutional (private) residence as the place of occurrence of the external cause; K57.90 Diverticulosis of intestine, part unspecified, without perforation or abscess without bleeding; M19.90 Unspecified osteoarthritis, unspecified site; Z86.73 Personal history of transient ischemic attack (TIA), and cerebral infarction without residual deficits; F41.9 Anxiety disorder, unspecified; Z85.89 Personal history of malignant neoplasm of other organs and systems; Z88.5 Allergy status to narcotic agent; Z88.8 Allergy status to other drugs, medicaments and biological substances; Z91.012 Allergy to eggs; Z79.01 Long term (current) use of anticoagulants; Z79.3 Long term (current) use of hormonal contraceptives; Z79.899 Other long term (current) drug therapy; R29.6 Repeated falls; Z20.822 Contact with and (suspected) exposure to COVID-19
CPT/HCPCS: 36415; 70450; 70460; 70486; 71045; 80048; 80053; 81001; 82550; 82607; 82728; 82746; 82947; 83540; 83550; 83605; 83735; 84100; 84134; 84484; 85025; 85610; 85730; 86140; 87040; 87086; 87088; 87186; 93005; 93010; 97161-GP; 99284; 99285-25; A9270-GY; J0696; J3430; J3475; J7030; Q9967; U0002

== ENCOUNTER 2021-10-29 10:25 | Inpatient (IN) | payer MEDICARE, OTHER ==
[2021-10-29] MEDS ORDERED: Warfarin 2.5 MG Tab PO SCH (10:45)
[2021-10-29] MEDS ORDERED: Hypromellose 0.3% Ophth Soln 15 ML Bottle EYEBOTH PRN (10:48)
--- NOTE | 2021-10-29 19:37 | PCM.SN.2 ---
- Free Text/Narrative Note: Called and spoke with patient's son, Sander who is the POA. Informed Sander the patient was changed to Swing Bed today. I discussed AL versus NH depending on physical therapy and speech therapy evaluations. Sander verbalized understanding. Will monitor patient's progress for discharge.
[2021-10-29] MEDS: Docusate Sodium 100 MG Cap PO SCH (19:38)
[2021-10-30] MEDS ORDERED: Iopamidol 612 MG/ML 100 ML Bottle IVPUSH ONE (08:11)
[2021-10-30] MEDS: Metoprolol Succinate 50 MG Tab.ER PO SCH (08:25)
[2021-10-30] MEDS: Beta-Carotene (Vitamin A) w/Vitamin C & E plus Minerals Tab PO SCH (08:25)
[2021-10-30] MEDS: Cyanocobalamin (Vitamin B12) 250 MCG Tab PO SCH (08:25)
[2021-10-30] MEDS: Docusate Sodium 100 MG Cap PO SCH ×2 (08:25→19:50)
[2021-10-30] MEDS: Calcium Carbonate/Vitamin D3 1250 MG-5 MCG Tab PO SCH (08:25)
[2021-10-30] MEDS: Ferrous Sulfate 325 MG Tab PO SCH (08:25)
[2021-10-30] MEDS: Ascorbic Acid 500 MG Tab PO SCH (08:26)
[2021-10-30] MEDS: Warfarin 2.5 MG Tab PO SCH (19:51)
[2021-10-31] MEDS: Metoprolol Succinate 50 MG Tab.ER PO SCH (08:16)
[2021-10-31] MEDS: Calcium Carbonate/Vitamin D3 1250 MG-5 MCG Tab PO SCH (08:22)
[2021-10-31] MEDS: Beta-Carotene (Vitamin A) w/Vitamin C & E plus Minerals Tab PO SCH (08:22)
[2021-10-31] MEDS: Ascorbic Acid 500 MG Tab PO SCH (08:23)
[2021-10-31] MEDS: Cyanocobalamin (Vitamin B12) 250 MCG Tab PO SCH (08:23)
[2021-10-31] MEDS: Docusate Sodium 100 MG Cap PO SCH ×2 (08:24→20:16)
[2021-10-31] MEDS: Ferrous Sulfate 325 MG Tab PO SCH (08:25)
[2021-10-31] MEDS: Warfarin 2.5 MG Tab PO SCH (20:16)
[2021-11-01] MEDS: Metoprolol Succinate 50 MG Tab.ER PO SCH ×2 (08:26→11:05)
[2021-11-01] MEDS: Ascorbic Acid 500 MG Tab PO SCH ×2 (08:28→11:05)
[2021-11-01] MEDS: Cyanocobalamin (Vitamin B12) 250 MCG Tab PO SCH ×2 (08:29→11:05)
[2021-11-01] MEDS: Ferrous Sulfate 325 MG Tab PO SCH ×2 (08:29→11:05)
[2021-11-01] MEDS: Beta-Carotene (Vitamin A) w/Vitamin C & E plus Minerals Tab PO SCH ×2 (08:30→11:05)
[2021-11-01] MEDS: Calcium Carbonate/Vitamin D3 1250 MG-5 MCG Tab PO SCH ×2 (08:30→11:04)
[2021-11-01] MEDS: Docusate Sodium 100 MG Cap PO SCH ×3 (08:31→19:34)
[2021-11-01] MEDS ORDERED: Warfarin 5 MG Tab PO ONE (20:00)
[2021-11-02] MEDS: Metoprolol Succinate 50 MG Tab.ER PO SCH (08:19)
[2021-11-02] MEDS: Ferrous Sulfate 325 MG Tab PO SCH (08:22)
[2021-11-02] MEDS: Cyanocobalamin (Vitamin B12) 250 MCG Tab PO SCH (08:22)
[2021-11-02] MEDS: Ascorbic Acid 500 MG Tab PO SCH (08:22)
[2021-11-02] MEDS: Beta-Carotene (Vitamin A) w/Vitamin C & E plus Minerals Tab PO SCH (08:23)
[2021-11-02] MEDS: Calcium Carbonate/Vitamin D3 1250 MG-5 MCG Tab PO SCH (08:23)
[2021-11-02] MEDS: Docusate Sodium 100 MG Cap PO SCH ×2 (08:33→19:27)
--- NOTE | 2021-11-02 11:45 | PCM.SN.2 ---
- Free Text/Narrative Note: Spoke to son Sander this AM. He states he filled out paperwork for the patient to go to the retirement. This provider was unaware of patient's dispo. Sander states he was told by hospital staff the patient needs to transfer to the [facility] as the hospital needs the bed. This proposal manager writer did see patient today. No transfer advised until next week. Patient is still dizzy, needs additional PT, intermittent confusion, and needs to take meds consistently. Recheck labs today. Will ok transfer this Saturday to [facility] 1st floor.
[2021-11-02 12:31] LABS: ANION GAP 14.4 mmol/L (5-15)
[2021-11-02] MEDS ORDERED: Warfarin 5 MG Tab PO ONE (20:00)
[2021-11-03] MEDS: Cyanocobalamin (Vitamin B12) 250 MCG Tab PO SCH (08:09)
[2021-11-03] MEDS: Beta-Carotene (Vitamin A) w/Vitamin C & E plus Minerals Tab PO SCH (08:09)
[2021-11-03] MEDS: Calcium Carbonate/Vitamin D3 1250 MG-5 MCG Tab PO SCH (08:09)
[2021-11-03] MEDS: Ferrous Sulfate 325 MG Tab PO SCH (08:09)
[2021-11-03] MEDS: Ascorbic Acid 500 MG Tab PO SCH (08:09)
[2021-11-03] MEDS: Metoprolol Succinate 50 MG Tab.ER PO SCH (16:12)
[2021-11-03] MEDS: Docusate Sodium 100 MG Cap PO SCH (16:12)
[2021-11-03] MEDS ORDERED: Warfarin 5 MG Tab PO ONE (20:00)
[2021-11-03] MEDS: Docusate Sodium Liquid 100 MG/10 ML UD Cup PO SCH (20:08)
[2021-11-04] MEDS: Metoprolol Succinate 50 MG Tab.ER PO SCH (11:49)
[2021-11-04] MEDS: Docusate Sodium Liquid 100 MG/10 ML UD Cup PO SCH ×2 (11:49→20:19)
[2021-11-04] MEDS: Calcium Carbonate/Vitamin D3 1250 MG-5 MCG Tab PO SCH (11:49)
[2021-11-04] MEDS: Beta-Carotene (Vitamin A) w/Vitamin C & E plus Minerals Tab PO SCH (11:49)
[2021-11-04] MEDS: Ferrous Sulfate 325 MG Tab PO SCH (11:49)
[2021-11-04] MEDS: Ascorbic Acid 500 MG Tab PO SCH (11:50)
[2021-11-04] MEDS: Cyanocobalamin (Vitamin B12) 250 MCG Tab PO SCH (11:50)
[2021-11-04] MEDS ORDERED: Warfarin 2.5 MG Tab PO ONE (20:00)
[2021-11-05] MEDS: Metoprolol Succinate 50 MG Tab.ER PO SCH (11:44)
[2021-11-05] MEDS: Cyanocobalamin (Vitamin B12) 250 MCG Tab PO SCH (11:51)
[2021-11-05] MEDS: Docusate Sodium Liquid 100 MG/10 ML UD Cup PO SCH ×2 (11:51→19:40)
[2021-11-05] MEDS: Beta-Carotene (Vitamin A) w/Vitamin C & E plus Minerals Tab PO SCH (11:51)
[2021-11-05] MEDS: Ascorbic Acid 500 MG Tab PO SCH (11:51)
[2021-11-05] MEDS: Ferrous Sulfate 325 MG Tab PO SCH (11:51)
[2021-11-05] MEDS: Calcium Carbonate/Vitamin D3 1250 MG-5 MCG Tab PO SCH (11:51)
[2021-11-05] MEDS ORDERED: Warfarin 2.5 MG Tab PO ONE (20:00)
--- NOTE | 2021-11-06 09:04 | DISCH ---
Discharge summary from the Swing Bed Unit at [facility]. Discharged to [facility]. ADMITTING DIAGNOSES: 1. Closed head injury with unknown loss of consciousness. 2. Rhabdomyolysis. 3. Dehydration. 4. Fall at home. 5. Weakness and deconditioning. 6. Atrial fibrillation. 7. Essential hypertension. 8. Mixed hyperlipidemia. DISCHARGE DIAGNOSES: 1. Closed head injury with unknown loss of consciousness, resolved. 2. Rhabdomyolysis, resolved. 3. Dehydration, resolved. 4. Fall at home. 5. Weakness and deconditioning - improved. 6. Atrial fibrillation. 7. Essential hypertension. 8. Mixed hyperlipidemia. HISTORY OF PRESENT ILLNESS: An 89-year-old female patient was originally admitted to the acute care floor at [facility] after she fell at home and was down for greater than 12 hours. The patient presented to the emergency room where she was found to be somewhat confused and in rhabdomyolysis. She was admitted to the acute care floor for IV hydration and close monitoring. The patient did well while she was on the acute care floor but remained weak and deconditioned. Therefore, she was switched to swing bed and was seen by Physical Therapy. BRIEF HOSPITAL COURSE: The patient continues to have bouts of confusion and does refuse her medications at times. The patient was found to have vertigo, therefore, Physical Therapy has been seeing her for this issue as well as her weakness and deconditioning. The patient was seen by Speech Therapy who recommended mechanical soft with thin liquids. The patient remained hemodynamically stable and afebrile. Labs remained stable. She did have an elevated INR of 9.7, for which she got 10 mg of IV vitamin K. The patient's INR is now therapeutic. CONSULTATIONS: 1. Case Management. 2. Physical Therapy. 3. Occupational Therapy. 4. Speech Therapy. ACTIVITY: Per PT. DIET: Mechanical soft with thin liquids. DISCHARGE LABORATORY WORK: None. DISCHARGE IMAGING STUDIES: None. DISCHARGE MEDICATIONS: 1. Ascorbic acid 1000 mg 1 tablet p.o. daily. 2. Beta-carotene 1 tablet p.o. daily. 3. Calcium carbonate with vitamin D 1 tablet p.o. daily. 4. Chlordiazepoxide 5 mg 1 tablet p.o. 3 times daily as needed. 5. Vitamin B12 at 250 mcg 1 tablet p.o. daily. 6. Colace 100 mg 1 tablet p.o. twice daily. 7. Ferrous sulfate 325 mg 1 tablet p.o. daily. 8. Gentle Tears 1 drop to both eyes as needed. 9. Metoprolol succinate 100 mg 1 tablet p.o. daily. 10.Coumadin per [facility]. REVIEW OF SYSTEMS: Constitutional: Negative. Respiratory: Negative. Cardiovascular: Negative. Abdomen: Negative. Skin: Negative. Extremities: Negative. Neurological: Denies headache, dizziness, or lightheadedness. DISCHARGE PHYSICAL EXAMINATION: Vital Signs: Temperature 97.7, pulse 72, blood pressure 153/84, respiratory rate 18, and oxygen saturation 94% on room air. Weight 120.4 pounds. Skin: Fragile, intact, warm and dry. Respiratory: Lungs are decreased but clear throughout. Cardiovascular: Irregularly irregular rhythm, regular rate. Abdomen: Bowel sounds are hypoactive x4, soft, nontender. Extremities: No edema. Neurological: The patient is pleasant but confused at times. Alert. No acute focal neurological deficits. ASSESSMENT: 1. Closed head injury with unknown loss of consciousness. 2. Rhabdomyolysis, resolved. 3. Dehydration, resolved. 4. Fall at home. 5. Weakness and deconditioning, improving. 6. Atrial fibrillation. 7. Essential hypertension. 8. Mixed hyperlipidemia. PLAN: An 89-year-old female patient will be discharged to the local half-way today. No changes in medications. We will have Physical, Occupational, and Speech Therapy see the patient at the half-way. [facility] to manage patient's Coumadin dosing. The patient is a code 2. Activity per physical therapy. The patient was discharged from hospital in hemodynamically stable condition. Total time for care and coordination greater than 30 minutes. This patient was seen and examined by me as an [facility] provider. TB: 11/06/2021 07:56:38 MODL: 11/06/2021 08:58:07 /[id number]
[2021-11-06] MEDS: Metoprolol Succinate 50 MG Tab.ER PO SCH (13:00)
[2021-11-06] MEDS: Cyanocobalamin (Vitamin B12) 250 MCG Tab PO SCH (13:00)
[2021-11-06] MEDS: Ascorbic Acid 500 MG Tab PO SCH (13:00)
[2021-11-06] MEDS: Ferrous Sulfate 325 MG Tab PO SCH (13:00)
[2021-11-06] MEDS: Beta-Carotene (Vitamin A) w/Vitamin C & E plus Minerals Tab PO SCH (13:00)
[2021-11-06] MEDS: Docusate Sodium Liquid 100 MG/10 ML UD Cup PO SCH (13:00)
[2021-11-06] MEDS ORDERED: Warfarin 2.5 MG Tab PO SCH (20:00)
== END 2021-11-06 13:30 | DRG 948 ==
LOC: VM.MS 10:25
PROVIDERS: ADMIT Nurse Practitioner Family; ATTEND Nurse Practitioner Family
DX: R53.81 Other malaise (principal); M62.82 Rhabdomyolysis; I48.91 Unspecified atrial fibrillation; I10 Essential (primary) hypertension; E78.2 Mixed hyperlipidemia; E86.0 Dehydration; F41.1 Generalized anxiety disorder; M54.50 Low back pain, unspecified; G89.29 Other chronic pain; S06.9X9D Unspecified intracranial injury with loss of consciousness of unspecified duration, subsequent encounter; Z98.41 Cataract extraction status, right eye; Z98.42 Cataract extraction status, left eye; Z95.0 Presence of cardiac pacemaker; Z91.012 Allergy to eggs; Z88.5 Allergy status to narcotic agent; Z88.0 Allergy status to penicillin
CPT/HCPCS: 36415; 80053; 81001; 82140; 85025; 85610; 92610-GN; 97110-GP; 97112-GP; 97165-GO; 97535-GO; A9270-GY; Q9967; U0002